=== PATIENT | female | born 1955 | race Caucasian/White ===

== ENCOUNTER 2017-08-02 09:46 | Outpatient (CLI) | payer OTHER | END 2017-08-02 09:47 | disposition home or self-care (01) | LOC: BICMRI 09:46 | PROVIDERS: ATTEND Orthopaedic Surgery | DX: M25.512 Pain in left shoulder (principal) ==

== ENCOUNTER 2017-10-19 12:10 | Outpatient (CLI) | payer OTHER | END 2017-10-19 12:11 | disposition home or self-care (01) | LOC: BICMAMMO 12:10 | PROVIDERS: ATTEND Family Medicine | DX: Z12.31 Encounter for screening mammogram for malignant neoplasm of breast (principal); Z80.3 Family history of malignant neoplasm of breast | CPT/HCPCS: 77067 ==

== ENCOUNTER 2017-10-28 12:56 | Outpatient (CLI) | payer OTHER ==
--- NOTE | 2017-10-28 14:10 | RAD ---
CHEST 2 VIEWS: HISTORY: Dyspnea. COMPARISON: None. FINDINGS: Normal cardiac silhouette. The lungs and pleural spaces are clear. No pneumothorax or osseous abnor malities. IMPRESSION: No acute cardiopulmonary process. POS: [facility]
== END 2017-10-28 12:57 | disposition home or self-care (01) ==
LOC: RAD 12:56
PROVIDERS: ATTEND Internal Medicine
DX: R06.00 Dyspnea, unspecified (principal)
CPT/HCPCS: 71046

== ENCOUNTER 2017-11-10 13:22 | Outpatient (CLI) | payer OTHER | END 2017-11-10 13:23 | disposition home or self-care (01) | LOC: CP 13:22 | PROVIDERS: ATTEND Internal Medicine | DX: R06.09 Other forms of dyspnea (principal); G47.33 Obstructive sleep apnea (adult) (pediatric) | CPT/HCPCS: 94060; 94727; 94729 ==

== ENCOUNTER 2017-11-19 13:20 | Outpatient (CLI) | payer OTHER | END 2017-11-19 13:21 | disposition home or self-care (01) | LOC: BICMAMMO 13:20 | PROVIDERS: ATTEND Family Medicine | DX: R92.8 Other abnormal and inconclusive findings on diagnostic imaging of breast (principal) | CPT/HCPCS: G0279 ==

== ENCOUNTER 2017-12-09 20:30 | Outpatient (CLI) | payer OTHER | END 2017-12-09 20:31 | disposition home or self-care (01) | LOC: SLEEPLAB 20:30 | PROVIDERS: ATTEND Internal Medicine | DX: G47.33 Obstructive sleep apnea (adult) (pediatric) (principal); R53.83 Other fatigue; R51 Headache; E66.9 Obesity, unspecified; R35.1 Nocturia; G47.00 Insomnia, unspecified; I10 Essential (primary) hypertension; E11.9 Type 2 diabetes mellitus without complications | CPT/HCPCS: 95810 ==

== ENCOUNTER 2017-12-23 19:30 | Outpatient (CLI) | payer OTHER | END 2017-12-23 19:31 | disposition home or self-care (01) | LOC: SLEEPLAB 19:30 | PROVIDERS: ATTEND Internal Medicine | DX: G47.33 Obstructive sleep apnea (adult) (pediatric) (principal); R42 Dizziness and giddiness; R51 Headache; E66.9 Obesity, unspecified; R06.83 Snoring; G47.00 Insomnia, unspecified; R35.1 Nocturia; I10 Essential (primary) hypertension; E11.9 Type 2 diabetes mellitus without complications | CPT/HCPCS: 95811 ==

== ENCOUNTER 2017-12-27 11:03 | Outpatient (CLI) | payer OTHER ==
[2017-12-27 12:44] LABS: Hemoglobin 13.7 g/dL (12.0-16.0); Mean Corpuscular HGB CONC 33.1 g/dL (32.0-36.0); Mean Corpuscular Hemoglobin 28.4 pg (27.0-31.0); Mean Corpuscular Volume 85.8 fL (78.0-98.0); Mean Platelet Volume 7.7 fL (7.4-10.4); Platelet Count 329 thou/uL (130-400); RBC Distribution Width 12.5 % (11.5-14.5); Red Blood Cell (RBC) Count 4.83 mill/uL (4.20-5.40); White Blood Cell (WBC) Count 10.1 thou/uL (4.8-10.8)
[2017-12-27 13:07] LABS: Anion Gap 13 mmol/L (10-20); BUN (Urea Nitrogen) 14 mg/dL (9.8-20.1); Calc. Creatinine Clearance 0 mL/min (70-130); Calcium 9.3 mg/dL (7.8-10.44); Carbon Dioxide 26 mmol/L (23-31); Chloride 101 mmol/L (98-107); Estimated GFR-MDRD Greater than 90; Glucose 116 mg/dL (80-115); Potassium 3.1 mmol/L (3.5-5.1); Sodium 137 mmol/L (136-145)
== END 2017-12-27 11:04 | disposition home or self-care (01) ==
LOC: LABBT 11:03
PROVIDERS: ATTEND Orthopaedic Surgery
DX: Z01.818 Encounter for other preprocedural examination (principal); M75.102 Unspecified rotator cuff tear or rupture of left shoulder, not specified as traumatic
CPT/HCPCS: 80048; 85027; 93005; 93010

== ENCOUNTER 2017-12-30 05:46 | Day surgery (SDC) | payer OTHER ==
[2017-12-27 11:31] VITALS: BMI 41.2
[2017-12-30] MEDS ORDERED: Clindamycin/D5W 900 mg/50 ml Premix Bag ONE (06:35)
[2017-12-30] MEDS ORDERED: Levofloxacin 500 mg/D5W 100 ml Premix Bag ONE (06:37)
[2017-12-30] MEDS ORDERED: Fentanyl 100 MCG/2 ML VIAL ONE (06:41)
[2017-12-30] MEDS ORDERED: Midazolam HCl 2 mg/2 ml Vial ONE (06:41)
[2017-12-30] MEDS ORDERED: Zolpidem Tartrate 5 MG TAB PO PRN (07:32)
[2017-12-30] MEDS ORDERED: traMADol HCl 50 MG TAB PO PRN ×2 (07:32)
[2017-12-30] MEDS ORDERED: HYDROcodone/Acetaminophen 5/325 mg Tablet PO PRN ×2 (07:32)
[2017-12-30] MEDS ORDERED: Ropivacaine HCl/PF 1,100 MG in Sodium Chloride 0.9% 440 ML NERVE BLCK SCH (07:32)
[2017-12-30] MEDS ORDERED: Promethazine HCl 25 MG/ML VIAL IM PRN (07:32)
[2017-12-30] MEDS ORDERED: Ketorolac Tromethamine 30 MG/ML VIAL IVP PRN (07:32)
[2017-12-30] MEDS ORDERED: Ondansetron HCl/PF 4 MG/2 ML Vial IVP PRN (07:32)
[2017-12-30] MEDS ORDERED: Fentanyl 100 MCG/2 ML VIAL IV PRN (07:34)
[2017-12-30] MEDS ORDERED: Bupivacaine/Epinephrine 0.25% 30 ML VIAL ONE (08:04)
--- NOTE | 2017-12-30 09:50 | OP ---
DATE OF PROCEDURE: 12/30/2017 PREOPERATIVE DIAGNOSIS: Left high grade versus complete rotator cuff tear. POSTOPERATIVE DIAGNOSES: Left high grade rotator cuff tear greater than 50%. PROCEDURE PERFORMED: Left rotator cuff repair. STAFF: Sheng Srinivasan M.D. SPECIAL EVENTS MANAGER: None. ANESTHESIA: Burrough. The patient received a general endotracheal intubation with interscalene bloc k. ESTIMATED BLOOD LOSS: Less than 30 mL. TOURNIQUET TIME: None. IMPLANTS: A 5.5 Arthrex corkscrew. ANTIBIOTICS: Levaquin. COMPLICATIONS: None. HISTORY OF PRESENT ILLNESS: Ms. Nicole is a 62-year-old female who presented to my care for a fall i n March. She had pain, had an injection which gave her relief. The patient had MRI evidence of a near full thickness tear. I discussed with patient the risks and benefits of a left rotator cuff rep air to include pain, scar, bleeding, infection, damage to vital structures, decreased range of motion or strength, continued pain despite surgical intervention, damage to vital structures, loss of left limb. She understood the risks and benefits and elected to proceed. Timeout performed designating t he patient's left upper extremity as the operative site based on site, consents, markings. PROCEDURE IN DETAIL: After completion of timeout the patient's upper extremity was prepped and drape d in sterile fashion. Posterior working portal placed looked intraarticularly. No full thickness de fects. The ____ was inflamed, but otherwise intact. Subscap was otherwise not tear, the capsule was in place, I did not see any full thickness tearing. We then moved subacromially, debrided off the b ursa, found the patient's tear which was just a small linear tear, kind of near the insertion of the infraspinatus. We debrided the bone, placed a single 5.5 anchor, placed 2 sutures. I felt that I h ad reapproximated the cuff well. I then washed, cut the sutures and closed with 3-0 nylon. The patient will be placed in a sling. Elbow, wrist, and hand motion until I see her back. The dany ent will pull her block if she has any difficulty breathing, sleep upright in a chair and will be giv en hydrocodone for pain relief.
== END 2017-12-30 11:45 | disposition home or self-care (01) ==
LOC: SDC 05:46
PROVIDERS: ATTEND Orthopaedic Surgery
PROC: 0LQ24ZZ Repair Left Shoulder Tendon, Percutaneous Endoscopic Approach (ICD-10-PCS; principal; 2017-12-30)
PROC: 0LU24JZ Supplement Left Shoulder Tendon with Synthetic Substitute, Percutaneous Endoscopic Approach (ICD-10-PCS; principal; 2017-12-30)
DX: S46.012A Strain of muscle(s) and tendon(s) of the rotator cuff of left shoulder, initial encounter (principal); E11.9 Type 2 diabetes mellitus without complications; J44.9 Chronic obstructive pulmonary disease, unspecified; E03.9 Hypothyroidism, unspecified; K21.9 Gastro-esophageal reflux disease without esophagitis; I10 Essential (primary) hypertension; G47.30 Sleep apnea, unspecified; Z79.82 Long term (current) use of aspirin; Z79.84 Long term (current) use of oral hypoglycemic drugs; Z79.899 Other long term (current) drug therapy; Z88.8 Allergy status to other drugs, medicaments and biological substances; Z98.890 Other specified postprocedural states; W19.XXXA Unspecified fall, initial encounter
CPT/HCPCS: C1713; J1956; J2250; J3010; J3490; J7050

== ENCOUNTER 2017-12-30 21:47 | Emergency (ER) | payer OTHER | END 2017-12-30 23:13 | disposition home or self-care (01) | LOC: ERS 21:47 | DX: G89.18 Other acute postprocedural pain (principal); M25.512 Pain in left shoulder; E11.9 Type 2 diabetes mellitus without complications; E03.9 Hypothyroidism, unspecified; E78.5 Hyperlipidemia, unspecified; J44.9 Chronic obstructive pulmonary disease, unspecified; Z87.891 Personal history of nicotine dependence | CPT/HCPCS: 99283 ==

== ENCOUNTER → 2017-12-31 | Day surgery (SDC) | payer OTHER ==
[~2017-12-31] MED LIST: Ropivacaine 0.5% HCl/PF (150 MG/30 ML VIAL) ONE
== END ==
LOC: SDC/OP 10:58
PROVIDERS: ATTEND Anesthesiology
PROC: 3E0T3BZ Introduction of Anesthetic Agent into Peripheral Nerves and Plexi, Percutaneous Approach (ICD-10-PCS; principal; 2017-12-31)
DX: T82.524A Displacement of infusion catheter, initial encounter (principal); G89.18 Other acute postprocedural pain; M25.512 Pain in left shoulder
CPT/HCPCS: 99283; J2795

== ENCOUNTER 2018-06-09 09:11 | Outpatient (CLI) | payer OTHER | END 2018-06-09 09:12 | disposition home or self-care (01) | LOC: BICMAMMO 09:11 | PROVIDERS: ATTEND Family Medicine | DX: R92.8 Other abnormal and inconclusive findings on diagnostic imaging of breast (principal); Z80.3 Family history of malignant neoplasm of breast | CPT/HCPCS: G0279 ==

== ENCOUNTER 2019-03-06 14:24 | Outpatient (CLI) | payer MEDICARE, OTHER ==
--- NOTE | 2019-03-06 15:07 | MMO ---
Bilateral MAMMO Bilat Diag [facility]. CLINICAL HISTORY: Patient is 64 years old and is seen for diagnostic exam. The patient has no family history of breast cancer. The patient has no personal history of cancer. The patient has a history of right needle biopsy - benign and right needle biopsy - benign. VIEWS: The views performed were: bilateral craniocaudal with tomosynthesis; bilateral mediolateral oblique with tomosynthesis; and bilateral mediolateral with tomosynthesis. FILMS COMPARED: The present examination has been compared to prior imaging studies performed at [facility] on 11/19/2017 and 06/09/2018. This study has been interpreted with the assistance of computer-aided detection. MAMMOGRAM FINDINGS: There are scattered fibroglandular densities. Finding 1: There are stable benign appearing calcifications seen in both breasts. Finding 2: There are multiple stable focal asymmetries seen in both breasts. There are no suspicious masses, suspicious calcifications, or new areas of architectural distortion. IMPRESSION: THERE IS NO MAMMOGRAPHIC EVIDENCE OF MALIGNANCY. A ROUTINE FOLLOW-UP MAMMOGRAM IN 1 YEAR IS RECOMMENDED. THE RESULTS OF THIS EXAM WERE SENT TO THE PATIENT. ACR BI-RADS Category 2 - Benign finding MAMMOGRAPHY NOTE: 1. A negative mammogram report should not delay a biopsy if a dominant of clinically suspicious mass is present. 2. Approximately 10% to 15% of breast cancers are not detected by mammography. 3. Adenosis and dense breasts may obscure an underlying neoplasm. Reported by: SRIDHAR CHAVEZ MD Electonically Signed: [id number]
== END 2019-03-06 14:25 | disposition home or self-care (01) ==
LOC: BICMAMMO 14:24
PROVIDERS: ATTEND Family Medicine
DX: R92.8 Other abnormal and inconclusive findings on diagnostic imaging of breast (principal)
CPT/HCPCS: 77066; G0279

== ENCOUNTER 2021-03-05 14:00 | Emergency (ER) | payer MEDICARE, OTHER ==
[2021-03-05] MEDS ORDERED: Ketorolac Tromethamine 30 MG/ML VIAL ONE (15:38)
[2021-03-05 15:49] LABS: #Basophils 0.1 thou/uL (0.0-0.2); #Eosinphils 0.1 thou/uL (0.0-0.7); #Lymphocytes 3.6 thou/uL (1.20-3.40); #Monocytes 1.1 thou/uL (0.11-0.59); #Neutrophils 7.5 thou/uL (1.40-6.50); %Basophils 0.9 % (0.0-1.0); %Eosinophils 0.5 % (0.0-10.0); %Lymphocytes 29.2 % (21.0-51.0); %Neutrophils 60.4 % (42.0-75.0); Hemoglobin 14.3 g/dL (12.0-16.0); Mean Corpuscular HGB CONC 32.7 g/dL (32.0-36.0); Mean Corpuscular Hemoglobin 27.5 pg (27.0-31.0); Mean Corpuscular Volume 84.2 fL (78.0-98.0); Mean Platelet Volume 7.2 fL (7.4-10.4); Platelet Count 342 thou/uL (130-400); RBC Distribution Width 13.8 % (11.5-14.5); White Blood Cell (WBC) Count 12.5 thou/uL (4.8-10.8)
[2021-03-05 16:14] LABS: ALT (SGPT) 39 U/L (8-55); AST (SGOT) 29 U/L (5-34); Albumin 3.4 g/dL (3.4-4.8); Alkaline Phosphatase 77 U/L (40-110); Anion Gap 13 mmol/L (10-20); BUN (Urea Nitrogen) 18 mg/dL (9.8-20.1); Bilirubin, Total 0.5 mg/dL (0.2-1.2); Calc. Creatinine Clearance 0 mL/min (70-130); Carbon Dioxide 27 mmol/L (23-31); Chloride 103 mmol/L (98-107); Globulin 2.9 g/dL (2.4-3.5); Glucose 153 mg/dL (80-115); Magnesium 1.6 mg/dL (1.6-2.6); Potassium 3.5 mmol/L (3.5-5.1); Protein, Total 6.3 g/dL (5.8-8.1); Sodium 139 mmol/L (136-145)
[2021-03-05] MEDS ORDERED: Morphine 4 MG/ML VIAL ONE (17:40)
[2021-03-05] MEDS ORDERED: Dexamethasone 10 MG/ML VIAL ONE (17:41)
== END 2021-03-05 18:27 | disposition home or self-care (01) ==
LOC: ERS 14:00
DX: R53.81 Other malaise (principal); R52 Pain, unspecified; E11.9 Type 2 diabetes mellitus without complications; Q60.0 Renal agenesis, unilateral; N32.81 Overactive bladder; E78.5 Hyperlipidemia, unspecified; E78.00 Pure hypercholesterolemia, unspecified; I10 Essential (primary) hypertension; E03.9 Hypothyroidism, unspecified; G47.30 Sleep apnea, unspecified; Z87.891 Personal history of nicotine dependence; Z86.16 Personal history of COVID-19
CPT/HCPCS: 36415; 80053; 83605; 83735; 83880; 85025; 93005; 96374; 96375; J1100; J1885; J2270

== ENCOUNTER 2021-03-08 17:09 | Inpatient (IN) | payer MEDICARE ==
[2021-03-08 20:47] VITALS: BMI 36.1
[2021-03-08] MEDS ORDERED: Electrolyte Replacement Protocol 1 EACH FS SCH (23:15)
[2021-03-08] MEDS: Ibuprofen 200 MG TAB PO PRN (23:40)
[2021-03-08] MEDS ORDERED: Atorvastatin Calcium 20 MG TAB PO SCH (23:59)
[2021-03-08] MEDS ORDERED: Oxybutynin 5 MG TAB PO SCH (23:59)
[2021-03-08] MEDS ORDERED: Chlorthalidone 25 MG TAB PO SCH (23:59)
[2021-03-09] MEDS: Acetaminophen/Codeine 30-300mg Tablet PO PRN ×3 (00:58→10:12)
[2021-03-09] MEDS ORDERED: Nitroglycerin 0.4 MG TAB (25 Tab Bottle) SL PRN (04:05)
[2021-03-09] MEDS ORDERED: Lidocaine 2% Viscous Solution 10 ML, Aluminum & Magnesium Hydroxide 30 ML SSW SCH (04:15)
[2021-03-09] MEDS ORDERED: Aspirin 325 MG TAB PO SCH (04:15)
[2021-03-09] MEDS: Levothyroxine Sodium 100 MCG TAB PO SCH (04:27)
[2021-03-09] MEDS ORDERED: Dextrose 50% Abboject 50 ML SYRINGE SLOW IVP PRN (04:58)
[2021-03-09] MEDS ORDERED: Dextrose 5% in Water 1,000 ML IV PRN (04:58)
[2021-03-09 05:38] LABS: #Eosinphils 0.1 thou/uL (0.0-0.7); #Lymphocytes 3.2 thou/uL (1.20-3.40); #Monocytes 1.4 thou/uL (0.11-0.59); #Neutrophils 14.1 thou/uL (1.40-6.50); %Eosinophils 0.4 % (0.0-10.0); %Lymphocytes 17.1 % (21.0-51.0); %Monocytes 7.3 % (0.0-10.0); %Neutrophils 75.1 % (42.0-75.0); Hemoglobin 15.6 g/dL (12.0-16.0); Mean Corpuscular HGB CONC 31.9 g/dL (32.0-36.0); Mean Corpuscular Volume 84.6 fL (78.0-98.0); Mean Platelet Volume 7.1 fL (7.4-10.4); Platelet Count 285 thou/uL (130-400); RBC Distribution Width 14.1 % (11.5-14.5); Red Blood Cell (RBC) Count 5.77 mill/uL (4.20-5.40); White Blood Cell (WBC) Count 18.8 thou/uL (4.8-10.8)
[2021-03-09 05:40] LABS: Anion Gap 17 mmol/L (10-20); BUN (Urea Nitrogen) 9 mg/dL (9.8-20.1); Calc. Creatinine Clearance 139 mL/min (70-130); Calcium 8.8 mg/dL (7.8-10.44); Carbon Dioxide 21 mmol/L (23-31); Cardiac Risk 2.5 (Less than 4.5); Chloride 96 mmol/L (98-107); Cholesterol 117 mg/dl (< 200 Desired); Glucose 127 mg/dL (80-115); HDL Cholesterol 46 mg/dL (>60 Neg Risk); LDL Cholesterol, Calculated 53 mg/dL; Potassium 3.1 mmol/L (3.5-5.1); Sodium 131 mmol/L (136-145); Triglycerides 89 mg/dL (Less than 150)
[2021-03-09 05:44] LABS: Troponin I Less than 0.010 ng/mL (< 0.028)
[2021-03-09] MEDS ORDERED: metFORMIN 500 MG TAB PO SCH (08:00)
[2021-03-09] MEDS: Oxybutynin 5 MG TAB PO SCH ×2 (08:10→22:02)
[2021-03-09] MEDS: Enoxaparin Sodium 40 MG/0.4 ML SYRINGE SC SCH (08:11)
[2021-03-09] MEDS: Potassium Chloride 20 MEQ in Premix Bag 1 BAG IVPB SCH ×2 (10:36→11:04)
[2021-03-09] MEDS ORDERED: Potassium Chloride 20 MEQ TAB PO SCH (11:00)
[2021-03-09 11:34] LABS: Troponin I Less than 0.010 ng/mL (< 0.028)
[2021-03-09] MEDS: HYDROcodone/Acetaminophen 5/325 mg Tablet PO PRN ×3 (12:49→22:04)
[2021-03-09] MEDS: HumaLOG 300 UNITS/3 ML VIAL SC PRN (16:32)
[2021-03-09] MEDS: Ibuprofen 200 MG TAB PO PRN (16:34)
[2021-03-09] MEDS: Ondansetron PF 4 MG/2 ML Vial IVP PRN (16:34)
[2021-03-09] MEDS: hydrALAZINE 20 MG/ML VIAL SLOW IVP PRN (18:18)
[2021-03-09] MEDS ORDERED: Chlorthalidone 25 MG TAB PO SCH (21:00)
[2021-03-09] MEDS: Atorvastatin Calcium 20 MG TAB PO SCH (22:01)
[2021-03-10] MEDS: Ondansetron PF 4 MG/2 ML Vial IVP PRN (01:03)
[2021-03-10] MEDS: HYDROcodone/Acetaminophen 5/325 mg Tablet PO PRN ×5 (02:54→21:14)
[2021-03-10 05:50] LABS: Cardiac Risk 2.7 (Less than 4.5)
[2021-03-10] MEDS: Levothyroxine Sodium 100 MCG TAB PO SCH (06:14)
[2021-03-10] MEDS: HumaLOG 300 UNITS/3 ML VIAL SC PRN ×3 (06:15→21:16)
[2021-03-10] MEDS: Enoxaparin Sodium 40 MG/0.4 ML SYRINGE SC SCH (08:50)
[2021-03-10] MEDS: Oxybutynin 5 MG TAB PO SCH ×2 (08:51→21:13)
[2021-03-10] MEDS: Amlodipine 10 MG TAB PO SCH (10:33)
[2021-03-10] MEDS: Losartan 25 MG TAB PO SCH (10:33)
[2021-03-10] MEDS: Sodium Chloride 0.9% 1,000 ML IV SCH (12:31)
[2021-03-10] MEDS: guaiFENesin/Codeine 200 mg/20 mg 10 ml Cup PO PRN (17:27)
[2021-03-10] MEDS: Polyethylene Glycol 3350 17 GM Packet PO SCH (18:03)
[2021-03-10 18:26] LABS: Mean Corpuscular HGB CONC 32.2 g/dL (32.0-36.0); Mean Corpuscular Hemoglobin 27.3 pg (27.0-31.0); Mean Corpuscular Volume 84.8 fL (78.0-98.0); Platelet Count 458 thou/uL (130-400); RBC Distribution Width 14.7 % (11.5-14.5); Red Blood Cell (RBC) Count 6.21 mill/uL (4.20-5.40); White Blood Cell (WBC) Count 26.9 thou/uL (4.8-10.8)
[2021-03-10 18:43] LABS: Band 8 % (5-11); Lymphocytes 10 % (21-51); MDiff Complete? YES; Monocytes 6 % (0-10); Neutrophil 72 % (42-75); Platelet Morphology Comment Appears Increased; Polychromasia SLIGHT = 2-3 cells (100X) (0-2/hpf); Reactive Lymphocytes 4 % (0-10)
[2021-03-10 18:45] LABS: Anion Gap 21 mmol/L (10-20); BUN (Urea Nitrogen) 13 mg/dL (9.8-20.1); Calc. Creatinine Clearance 135 mL/min (70-130); Calcium 9.5 mg/dL (7.8-10.44); Carbon Dioxide 20 mmol/L (23-31); Chloride 94 mmol/L (98-107); Glucose 143 mg/dL (80-115); Potassium 3.3 mmol/L (3.5-5.1); Sodium 132 mmol/L (136-145)
[2021-03-10] MEDS ORDERED: Potassium Chloride 20 MEQ TAB PO SCH (19:45)
[2021-03-10] MEDS: Senokot S 8.6-50 MG TAB PO SCH (21:13)
[2021-03-10] MEDS: Atorvastatin Calcium 20 MG TAB PO SCH (21:14)
[2021-03-11] MEDS: HYDROcodone/Acetaminophen 5/325 mg Tablet PO PRN ×4 (02:04→21:36)
[2021-03-11] MEDS: Levothyroxine Sodium 100 MCG TAB PO SCH (05:21)
[2021-03-11] MEDS: Sodium Chloride 0.9% 1,000 ML IV SCH ×2 (05:21→18:23)
[2021-03-11 06:10] LABS: #Basophils 0.1 thou/uL (0.0-0.2); #Eosinphils 0.1 thou/uL (0.0-0.7); #Monocytes 1.8 thou/uL (0.11-0.59); #Neutrophils 14.1 thou/uL (1.40-6.50); %Basophils 0.3 % (0.0-1.0); %Eosinophils 0.4 % (0.0-10.0); %Lymphocytes 15.6 % (21.0-51.0); %Monocytes 9.6 % (0.0-10.0); %Neutrophils 74.1 % (42.0-75.0); Mean Corpuscular HGB CONC 31.8 g/dL (32.0-36.0); Mean Corpuscular Hemoglobin 26.8 pg (27.0-31.0); Mean Corpuscular Volume 84.4 fL (78.0-98.0); Mean Platelet Volume 7.4 fL (7.4-10.4); Platelet Count 461 thou/uL (130-400); RBC Distribution Width 14.6 % (11.5-14.5); Red Blood Cell (RBC) Count 5.97 mill/uL (4.20-5.40); White Blood Cell (WBC) Count 19.1 thou/uL (4.8-10.8)
[2021-03-11 06:25] LABS: Anion Gap 17 mmol/L (10-20); BUN (Urea Nitrogen) 11 mg/dL (9.8-20.1); Calc. Creatinine Clearance 151 mL/min (70-130); Calcium 8.7 mg/dL (7.8-10.44); Carbon Dioxide 24 mmol/L (23-31); Chloride 93 mmol/L (98-107); Glucose 162 mg/dL (80-115); Potassium 3.7 mmol/L (3.5-5.1); Sodium 130 mmol/L (136-145)
[2021-03-11] MEDS: HumaLOG 300 UNITS/3 ML VIAL SC PRN ×2 (06:31→13:12)
[2021-03-11] MEDS: Losartan 25 MG TAB PO SCH (09:56)
[2021-03-11] MEDS: Amlodipine 10 MG TAB PO SCH (09:56)
[2021-03-11] MEDS: Oxybutynin 5 MG TAB PO SCH ×2 (09:56→21:36)
[2021-03-11] MEDS: Senokot S 8.6-50 MG TAB PO SCH ×2 (09:56→21:36)
[2021-03-11] MEDS: Enoxaparin Sodium 40 MG/0.4 ML SYRINGE SC SCH (09:57)
[2021-03-11] MEDS ORDERED: Ketorolac Tromethamine 30 MG/ML VIAL IVP SCH (11:36)
[2021-03-11] MEDS: guaiFENesin/Codeine 200 mg/20 mg 10 ml Cup PO PRN (16:01)
[2021-03-11 16:03] LABS: #Basophils 0.1 thou/uL (0.0-0.2); #Eosinphils 0.1 thou/uL (0.0-0.7); #Lymphocytes 3.2 thou/uL (1.20-3.40); #Monocytes 1.6 thou/uL (0.11-0.59); #Neutrophils 14.5 thou/uL (1.40-6.50); %Basophils 0.3 % (0.0-1.0); %Eosinophils 0.4 % (0.0-10.0); %Lymphocytes 16.2 % (21.0-51.0); %Monocytes 8.3 % (0.0-10.0); %Neutrophils 74.8 % (42.0-75.0); Hemoglobin 15.8 g/dL (12.0-16.0); Mean Corpuscular Hemoglobin 27.9 pg (27.0-31.0); Mean Corpuscular Volume 84.4 fL (78.0-98.0); Platelet Count 442 thou/uL (130-400); RBC Distribution Width 14.7 % (11.5-14.5); Red Blood Cell (RBC) Count 5.66 mill/uL (4.20-5.40); White Blood Cell (WBC) Count 19.4 thou/uL (4.8-10.8)
[2021-03-11] MEDS: hydrALAZINE 20 MG/ML VIAL SLOW IVP PRN (16:09)
[2021-03-11 16:23] LABS: Anion Gap 14 mmol/L (10-20); BUN (Urea Nitrogen) 13 mg/dL (9.8-20.1); Calc. Creatinine Clearance 149 mL/min (70-130); Calcium 9.1 mg/dL (7.8-10.44); Carbon Dioxide 25 mmol/L (23-31); Chloride 95 mmol/L (98-107); Glucose 152 mg/dL (80-115); Potassium 3.5 mmol/L (3.5-5.1); Sodium 130 mmol/L (136-145)
[2021-03-11] MEDS: Polyethylene Glycol 3350 17 GM Packet PO SCH (17:56)
[2021-03-11] MEDS: Atorvastatin Calcium 20 MG TAB PO SCH (21:36)
[2021-03-12 05:26] LABS: Hemoglobin 16.2 g/dL (12.0-16.0); Mean Corpuscular HGB CONC 30.6 g/dL (32.0-36.0); Mean Corpuscular Hemoglobin 25.9 pg (27.0-31.0); Mean Corpuscular Volume 84.9 fL (78.0-98.0); Mean Platelet Volume 7.5 fL (7.4-10.4); Platelet Count 355 thou/uL (130-400); RBC Distribution Width 14.8 % (11.5-14.5); Red Blood Cell (RBC) Count 6.23 mill/uL (4.20-5.40); White Blood Cell (WBC) Count 21.9 thou/uL (4.8-10.8)
[2021-03-12 06:05] LABS: Anion Gap 18 mmol/L (10-20); BUN (Urea Nitrogen) 14 mg/dL (9.8-20.1); Calc. Creatinine Clearance 151 mL/min (70-130); Carbon Dioxide 20 mmol/L (23-31); Chloride 97 mmol/L (98-107); Glucose 154 mg/dL (80-115); Magnesium 1.8 mg/dL (1.6-2.6); Potassium 3.7 mmol/L (3.5-5.1); Sodium 131 mmol/L (136-145)
[2021-03-12] MEDS: HYDROcodone/Acetaminophen 5/325 mg Tablet PO PRN ×2 (06:15→20:01)
[2021-03-12] MEDS: Levothyroxine Sodium 100 MCG TAB PO SCH (06:15)
[2021-03-12] MEDS: Sodium Chloride 0.9% 1,000 ML IV SCH ×2 (06:17→20:21)
[2021-03-12 06:23] LABS: MDiff Complete? YES
[2021-03-12 06:24] LABS: Band 8 % (5-11); Lymphocytes 14 % (21-51); Monocytes 6 % (0-10); Neutrophil 71 % (42-75); Reactive Lymphocytes 1 % (0-10)
[2021-03-12] MEDS ORDERED: Magnesium 2 GM/50 ML 2 GM in Premix Bag 1 BAG IVPB SCH ×2 (07:00→10:00)
[2021-03-12] MEDS: Enoxaparin Sodium 40 MG/0.4 ML SYRINGE SC SCH (09:48)
[2021-03-12] MEDS: Amlodipine 10 MG TAB PO SCH (09:48)
[2021-03-12] MEDS: Losartan 25 MG TAB PO SCH (09:48)
[2021-03-12] MEDS: Oxybutynin 5 MG TAB PO SCH ×2 (09:48→20:01)
[2021-03-12] MEDS: Senokot S 8.6-50 MG TAB PO SCH ×2 (09:48→20:01)
[2021-03-12] MEDS: Ondansetron PF 4 MG/2 ML Vial IVP PRN (09:49)
[2021-03-12] MEDS: hydrALAZINE 20 MG/ML VIAL SLOW IVP PRN (11:59)
[2021-03-12] MEDS: HumaLOG 300 UNITS/3 ML VIAL SC PRN ×3 (12:01→18:47)
[2021-03-12] MEDS: Polyethylene Glycol 3350 17 GM Packet PO SCH (18:15)
[2021-03-12] MEDS: Atorvastatin Calcium 20 MG TAB PO SCH (20:01)
[2021-03-13] MEDS: Levothyroxine Sodium 100 MCG TAB PO SCH (06:37)
[2021-03-13] MEDS: HumaLOG 300 UNITS/3 ML VIAL SC PRN ×2 (06:38→11:52)
[2021-03-13] MEDS: Losartan 25 MG TAB PO SCH (08:21)
[2021-03-13] MEDS: Enoxaparin Sodium 40 MG/0.4 ML SYRINGE SC SCH (08:21)
[2021-03-13] MEDS: Amlodipine 10 MG TAB PO SCH (08:21)
[2021-03-13] MEDS: Senokot S 8.6-50 MG TAB PO SCH ×2 (08:21→19:52)
[2021-03-13] MEDS: Oxybutynin 5 MG TAB PO SCH ×2 (08:23→19:52)
[2021-03-13] MEDS ORDERED: Mineral Oil ENEMA PR SCH (09:15)
[2021-03-13] MEDS: Sodium Chloride 0.9% 1,000 ML IV SCH ×2 (10:30→15:07)
[2021-03-13] MEDS ORDERED: Magnesium Citrate 300 ML BOT PO SCH (11:15)
[2021-03-13] MEDS: HYDROcodone/Acetaminophen 5/325 mg Tablet PO PRN (15:56)
[2021-03-13] MEDS: hydrALAZINE 20 MG/ML VIAL SLOW IVP PRN (15:59)
[2021-03-13] MEDS: Nystatin 500,000 UNITS/5 ML UDCUP SSW SCH ×2 (16:45→19:52)
[2021-03-13] MEDS: Polyethylene Glycol 3350 17 GM Packet PO SCH (17:32)
[2021-03-13] MEDS: Atorvastatin Calcium 20 MG TAB PO SCH (19:51)
[2021-03-13] MEDS: Acetaminophen 325 MG TAB PO PRN (19:52)
[2021-03-14] MEDS: HYDROcodone/Acetaminophen 5/325 mg Tablet PO PRN ×3 (05:43→21:08)
[2021-03-14] MEDS: guaiFENesin/Codeine 200 mg/20 mg 10 ml Cup PO PRN ×2 (05:44→23:18)
[2021-03-14] MEDS: Levothyroxine Sodium 100 MCG TAB PO SCH (05:44)
[2021-03-14] MEDS: Senokot S 8.6-50 MG TAB PO SCH ×2 (09:00→21:08)
[2021-03-14] MEDS: Losartan 25 MG TAB PO SCH (09:00)
[2021-03-14] MEDS: Oxybutynin 5 MG TAB PO SCH ×2 (09:01→21:08)
[2021-03-14] MEDS: Nystatin 500,000 UNITS/5 ML UDCUP SSW SCH ×4 (09:02→21:09)
[2021-03-14] MEDS: Amlodipine 10 MG TAB PO SCH (09:02)
[2021-03-14] MEDS: Enoxaparin Sodium 40 MG/0.4 ML SYRINGE SC SCH (09:02)
[2021-03-14] MEDS ORDERED: Iopamidol-370 76% 500 ML 1 ML ONE (10:19)
[2021-03-14] MEDS: Sodium Chloride 0.9% 1,000 ML IV SCH (12:42)
[2021-03-14 14:39] LABS: #Eosinphils 0.1 thou/uL (0.0-0.7); #Lymphocytes 3.7 thou/uL (1.20-3.40); #Monocytes 1.8 thou/uL (0.11-0.59); #Neutrophils 12.1 thou/uL (1.40-6.50); %Basophils 0.1 % (0.0-1.0); %Eosinophils 0.8 % (0.0-10.0); %Lymphocytes 20.9 % (21.0-51.0); %Neutrophils 68.1 % (42.0-75.0); Hemoglobin 14.7 g/dL (12.0-16.0); Mean Corpuscular HGB CONC 33.1 g/dL (32.0-36.0); Mean Corpuscular Volume 84.7 fL (78.0-98.0); Mean Platelet Volume 6.9 fL (7.4-10.4); Platelet Count 350 thou/uL (130-400); Red Blood Cell (RBC) Count 5.23 mill/uL (4.20-5.40); White Blood Cell (WBC) Count 17.7 thou/uL (4.8-10.8)
[2021-03-14 15:03] LABS: ALT (SGPT) 23 U/L (8-55); AST (SGOT) 20 U/L (5-34); Alkaline Phosphatase 96 U/L (40-110); Anion Gap 14 mmol/L (10-20); BUN (Urea Nitrogen) 17 mg/dL (9.8-20.1); Bilirubin, Direct 0.3 mg/dL (0.1-0.3); Bilirubin, Total 0.6 mg/dL (0.2-1.2); Calc. Creatinine Clearance 139 mL/min (70-130); Calcium 8.8 mg/dL (7.8-10.44); Carbon Dioxide 22 mmol/L (23-31); Chloride 100 mmol/L (98-107); Glucose 171 mg/dL (80-115); Potassium 3.1 mmol/L (3.5-5.1); Protein, Total 6.4 g/dL (5.8-8.1); Sodium 133 mmol/L (136-145)
[2021-03-14] MEDS: Polyethylene Glycol 3350 17 GM Packet PO SCH (16:51)
[2021-03-14] MEDS ORDERED: cefTRIAXone\\ROCEPHIN 1 GM in Sodium Chloride 0.9% 100 ML IVPB SCH (18:15)
[2021-03-14] MEDS ORDERED: Potassium Chloride 10 MEQ in Premix Bag 1 BAG IVPB SCH (18:45)
[2021-03-14] MEDS ORDERED: Azithromycin 500 MG in Sodium Chloride 0.9% 250 ML 250 ML IVPB SCH (18:45)
[2021-03-14] MEDS ORDERED: Potassium Chloride 20 MEQ TAB PO SCH (18:50)
[2021-03-14] MEDS: Cyclobenzaprine 10 MG TAB PO SCH (21:08)
[2021-03-14] MEDS: Atorvastatin Calcium 20 MG TAB PO SCH (21:09)
[2021-03-14] MEDS: Acetaminophen 325 MG TAB PO PRN (22:43)
[2021-03-15] MEDS: HYDROcodone/Acetaminophen 5/325 mg Tablet PO PRN ×5 (01:36→22:32)
[2021-03-15] MEDS: guaiFENesin/Codeine 200 mg/20 mg 10 ml Cup PO PRN (05:03)
[2021-03-15] MEDS: Levothyroxine Sodium 100 MCG TAB PO SCH (05:03)
[2021-03-15] MEDS: Sodium Chloride 0.9% 1,000 ML IV SCH ×2 (05:04→15:52)
[2021-03-15 07:46] LABS: Anion Gap 14 mmol/L (10-20); BUN (Urea Nitrogen) 13 mg/dL (9.8-20.1); Calc. Creatinine Clearance 144 mL/min (70-130); Calcium 8.7 mg/dL (7.8-10.44); Carbon Dioxide 21 mmol/L (23-31); Chloride 101 mmol/L (98-107); Glucose 154 mg/dL (80-115); Magnesium 2.2 mg/dL (1.6-2.6); Phosphorus 2.9 mg/dL (2.3-4.7); Potassium 5.1 mmol/L (3.5-5.1); Sodium 131 mmol/L (136-145)
[2021-03-15 07:55] LABS: #Basophils 0.1 thou/uL (0.0-0.2); #Eosinphils 0.3 thou/uL (0.0-0.7); #Lymphocytes 3.5 thou/uL (1.20-3.40); #Monocytes 1.7 thou/uL (0.11-0.59); #Neutrophils 9.9 thou/uL (1.40-6.50); %Basophils 0.6 % (0.0-1.0); %Eosinophils 1.8 % (0.0-10.0); %Lymphocytes 22.4 % (21.0-51.0); %Monocytes 11.2 % (0.0-10.0); %Neutrophils 63.9 % (42.0-75.0); Hemoglobin 14.7 g/dL (12.0-16.0); Mean Corpuscular Hemoglobin 27.7 pg (27.0-31.0); Mean Corpuscular Volume 83.9 fL (78.0-98.0); Mean Platelet Volume 7.8 fL (7.4-10.4); Platelet Count 375 thou/uL (130-400); RBC Distribution Width 14.9 % (11.5-14.5); Red Blood Cell (RBC) Count 5.33 mill/uL (4.20-5.40); White Blood Cell (WBC) Count 15.5 thou/uL (4.8-10.8)
[2021-03-15] MEDS ORDERED: Potassium Chloride 20 MEQ TAB PO SCH (08:00)
[2021-03-15] MEDS: Cyclobenzaprine 10 MG TAB PO SCH ×3 (08:45→20:06)
[2021-03-15] MEDS: Amlodipine 10 MG TAB PO SCH (08:45)
[2021-03-15] MEDS: Senokot S 8.6-50 MG TAB PO SCH ×2 (08:47→20:06)
[2021-03-15] MEDS: Losartan 25 MG TAB PO SCH (08:47)
[2021-03-15] MEDS: Nystatin 500,000 UNITS/5 ML UDCUP SSW SCH ×4 (08:47→20:07)
[2021-03-15] MEDS: Oxybutynin 5 MG TAB PO SCH ×2 (08:47→20:06)
[2021-03-15] MEDS: Enoxaparin Sodium 40 MG/0.4 ML SYRINGE SC SCH (08:56)
[2021-03-15] MEDS ORDERED: MEROPENEM 1 GM/50 ML 1 GM in Premix Bag 1 BAG IVPB SCH (10:00)
[2021-03-15 16:34] LABS: Bacteria/HPF None Seen HPF (None Seen); Bilirubin Negative (Negative); Blood, Urine Trace (Negative); Clarity Clear (Clear); Glucose, Urine (Dipstick) Normal (Negative); Ketone, Urine Negative (Negative); Leukocyte 25 Leu/uL (Negative); Nitrite Negative (Negative); Protein, Urine (Dipstick) Negative (Neg-Trace); Specific Gravity, Urine 1.014 (1.002-1.036); Squamous Epithelial 0-3 HPF (0-3); Urobilinogen Normal mg/dL (Less than 2)
[2021-03-15] MEDS: Polyethylene Glycol 3350 17 GM Packet PO SCH (17:26)
[2021-03-15] MEDS: MEROPENEM 1 GM/50 ML 1 GM in Premix Bag 1 BAG IVPB SCH (17:26)
[2021-03-15] MEDS: Atorvastatin Calcium 20 MG TAB PO SCH (20:06)
[2021-03-16] MEDS: Sodium Chloride 0.9% 1,000 ML IV SCH (02:31)
[2021-03-16] MEDS: HYDROcodone/Acetaminophen 5/325 mg Tablet PO PRN ×2 (02:31→08:30)
[2021-03-16] MEDS: MEROPENEM 1 GM/50 ML 1 GM in Premix Bag 1 BAG IVPB SCH ×3 (02:45→17:57)
[2021-03-16] MEDS: Levothyroxine Sodium 100 MCG TAB PO SCH (05:40)
[2021-03-16 06:53] LABS: #Basophils 0.1 thou/uL (0.0-0.2); #Eosinphils 0.3 thou/uL (0.0-0.7); #Lymphocytes 3.5 thou/uL (1.20-3.40); #Monocytes 1.2 thou/uL (0.11-0.59); #Neutrophils 4.8 thou/uL (1.40-6.50); %Basophils 0.5 % (0.0-1.0); %Eosinophils 3.1 % (0.0-10.0); %Lymphocytes 35.9 % (21.0-51.0); %Monocytes 11.6 % (0.0-10.0); %Neutrophils 48.8 % (42.0-75.0); Hemoglobin 14.9 g/dL (12.0-16.0); Mean Corpuscular HGB CONC 33.3 g/dL (32.0-36.0); Mean Corpuscular Hemoglobin 28.2 pg (27.0-31.0); Mean Corpuscular Volume 84.7 fL (78.0-98.0); Mean Platelet Volume 6.5 fL (7.4-10.4); Platelet Count 336 thou/uL (130-400); RBC Distribution Width 14.8 % (11.5-14.5); Red Blood Cell (RBC) Count 5.27 mill/uL (4.20-5.40); White Blood Cell (WBC) Count 9.9 thou/uL (4.8-10.8)
[2021-03-16 07:14] LABS: ALT (SGPT) 22 U/L (8-55); AST (SGOT) 23 U/L (5-34); Alkaline Phosphatase 101 U/L (40-110); Anion Gap 12 mmol/L (10-20); BUN (Urea Nitrogen) 9 mg/dL (9.8-20.1); Bilirubin, Total 0.5 mg/dL (0.2-1.2); Calc. Creatinine Clearance 169 mL/min (70-130); Calcium 8.9 mg/dL (7.8-10.44); Carbon Dioxide 25 mmol/L (23-31); Chloride 100 mmol/L (98-107); Globulin 2.9 g/dL (2.4-3.5); Glucose 127 mg/dL (80-115); Protein, Total 5.9 g/dL (5.8-8.1); Sodium 133 mmol/L (136-145)
[2021-03-16] MEDS: Senokot S 8.6-50 MG TAB PO SCH ×2 (08:24→21:01)
[2021-03-16] MEDS: Cyclobenzaprine 10 MG TAB PO SCH ×3 (08:24→21:01)
[2021-03-16] MEDS: Nystatin 500,000 UNITS/5 ML UDCUP SSW SCH ×4 (08:25→21:00)
[2021-03-16] MEDS: Oxybutynin 5 MG TAB PO SCH ×2 (08:25→21:01)
[2021-03-16] MEDS: Losartan 25 MG TAB PO SCH (08:25)
[2021-03-16] MEDS: Amlodipine 10 MG TAB PO SCH (08:25)
[2021-03-16] MEDS: Saccharomyces boulardii 250 MG CAP PO SCH (08:25)
[2021-03-16] MEDS: Enoxaparin Sodium 40 MG/0.4 ML SYRINGE SC SCH (08:26)
[2021-03-16] MEDS: Gabapentin 400 MG CAP PO SCH (10:00)
[2021-03-16] MEDS: Polyethylene Glycol 3350 17 GM Packet PO SCH (17:58)
[2021-03-16] MEDS: Melatonin 3 MG TAB PO SCH (21:00)
[2021-03-16] MEDS: Atorvastatin Calcium 20 MG TAB PO SCH (21:01)
[2021-03-17] MEDS: Acetaminophen/Codeine 30-300mg Tablet PO PRN (00:04)
[2021-03-17] MEDS: MEROPENEM 1 GM/50 ML 1 GM in Premix Bag 1 BAG IVPB SCH ×3 (02:03→16:57)
[2021-03-17] MEDS: Levothyroxine Sodium 100 MCG TAB PO SCH (05:24)
[2021-03-17] MEDS: HYDROcodone/Acetaminophen 5/325 mg Tablet PO PRN (05:24)
[2021-03-17] MEDS: Enoxaparin Sodium 40 MG/0.4 ML SYRINGE SC SCH (08:42)
[2021-03-17] MEDS: Nystatin 500,000 UNITS/5 ML UDCUP SSW SCH ×4 (08:43→23:15)
[2021-03-17] MEDS: Amlodipine 10 MG TAB PO SCH (08:43)
[2021-03-17] MEDS: Gabapentin 400 MG CAP PO SCH (08:43)
[2021-03-17] MEDS: Oxybutynin 5 MG TAB PO SCH ×2 (08:43→23:13)
[2021-03-17] MEDS: Losartan 25 MG TAB PO SCH (08:43)
[2021-03-17] MEDS: Saccharomyces boulardii 250 MG CAP PO SCH (08:43)
[2021-03-17] MEDS: Cyclobenzaprine 10 MG TAB PO SCH ×3 (08:44→23:13)
[2021-03-17] MEDS: Senokot S 8.6-50 MG TAB PO SCH ×2 (08:44→23:14)
[2021-03-17] MEDS: Polyethylene Glycol 3350 17 GM Packet PO SCH (16:57)
[2021-03-17] MEDS: Atorvastatin Calcium 20 MG TAB PO SCH (23:13)
[2021-03-18] MEDS: Melatonin 3 MG TAB PO SCH ×2 (00:50→21:15)
[2021-03-18] MEDS: MEROPENEM 1 GM/50 ML 1 GM in Premix Bag 1 BAG IVPB SCH ×3 (02:33→18:07)
[2021-03-18] MEDS: HumaLOG 300 UNITS/3 ML VIAL SC PRN (05:43)
[2021-03-18] MEDS: Levothyroxine Sodium 100 MCG TAB PO SCH (05:43)
[2021-03-18] MEDS: Nystatin 500,000 UNITS/5 ML UDCUP SSW SCH ×4 (07:41→21:16)
[2021-03-18] MEDS: Oxybutynin 5 MG TAB PO SCH ×2 (07:41→21:16)
[2021-03-18] MEDS: Saccharomyces boulardii 250 MG CAP PO SCH (07:41)
[2021-03-18] MEDS: Amlodipine 10 MG TAB PO SCH (07:41)
[2021-03-18] MEDS: Losartan 25 MG TAB PO SCH (07:41)
[2021-03-18] MEDS: Gabapentin 400 MG CAP PO SCH (07:42)
[2021-03-18] MEDS: Senokot S 8.6-50 MG TAB PO SCH ×2 (07:42→21:16)
[2021-03-18] MEDS: Cyclobenzaprine 10 MG TAB PO SCH ×3 (07:42→21:15)
[2021-03-18 08:31] LABS: #Basophils 0.1 thou/uL (0.0-0.2); #Eosinphils 0.2 thou/uL (0.0-0.7); #Monocytes 1.6 thou/uL (0.11-0.59); %Basophils 0.9 % (0.0-1.0); %Eosinophils 1.7 % (0.0-10.0); %Lymphocytes 28.6 % (21.0-51.0); %Monocytes 11.4 % (0.0-10.0); %Neutrophils 57.5 % (42.0-75.0); Hemoglobin 15.3 g/dL (12.0-16.0); Mean Corpuscular HGB CONC 33.4 g/dL (32.0-36.0); Mean Corpuscular Hemoglobin 28.1 pg (27.0-31.0); Mean Corpuscular Volume 83.9 fL (78.0-98.0); Mean Platelet Volume 6.8 fL (7.4-10.4); Platelet Count 419 thou/uL (130-400); RBC Distribution Width 14.8 % (11.5-14.5); Red Blood Cell (RBC) Count 5.44 mill/uL (4.20-5.40)
[2021-03-18 08:46] LABS: Anion Gap 14 mmol/L (10-20); BUN (Urea Nitrogen) 20 mg/dL (9.8-20.1); Calc. Creatinine Clearance 163 mL/min (70-130); Calcium 9.2 mg/dL (7.8-10.44); Carbon Dioxide 24 mmol/L (23-31); Chloride 102 mmol/L (98-107); Glucose 114 mg/dL (80-115); Potassium 4.2 mmol/L (3.5-5.1); Sodium 136 mmol/L (136-145)
[2021-03-18 08:48] LABS: Prothrombin Time 13.6 sec (12.0-14.7)
[2021-03-18 08:49] LABS: PTT 36.4 sec (22.9-36.1)
[2021-03-18 10:56] LABS: CSF RBC Count - Manual 0 /cu.mm (None Seen); CSF Source CSF; CSF WBC/NonHematics Count-Man 2 /cu.mm (0-5); Clarity Clear (Clear); Tube # 4
[2021-03-18 10:57] LABS: CSF, Glucose 87 mg/dl (40-70); CSF, Protein 159 mg/dL (15-40)
[2021-03-18 15:56] LABS: Color Of CSF Supernatant COLORLESS (Colorless); Tube # 1; Unspun CSF Color COLORLESS (Colorless)
[2021-03-18] MEDS: OCTAGAM 10% 30 GM in Admixture Fee 1 EACH IVPB SCH (16:00)
[2021-03-18] MEDS: Polyethylene Glycol 3350 17 GM Packet PO SCH (18:07)
[2021-03-18] MEDS: Atorvastatin Calcium 20 MG TAB PO SCH (21:15)
[2021-03-18] MEDS: Acetaminophen/Codeine 30-300mg Tablet PO PRN (21:16)
[2021-03-19] MEDS: MEROPENEM 1 GM/50 ML 1 GM in Premix Bag 1 BAG IVPB SCH (02:30)
[2021-03-19] MEDS: Levothyroxine Sodium 100 MCG TAB PO SCH (04:57)
[2021-03-19] MEDS: Acetaminophen/Codeine 30-300mg Tablet PO PRN (04:58)
[2021-03-19] MEDS: Cyclobenzaprine 10 MG TAB PO SCH ×3 (08:28→21:57)
[2021-03-19] MEDS: Senokot S 8.6-50 MG TAB PO SCH ×2 (08:28→21:57)
[2021-03-19] MEDS: Gabapentin 400 MG CAP PO SCH (08:28)
[2021-03-19] MEDS: Nystatin 500,000 UNITS/5 ML UDCUP SSW SCH ×4 (08:28→23:35)
[2021-03-19] MEDS: Losartan 25 MG TAB PO SCH (08:28)
[2021-03-19] MEDS: Amlodipine 10 MG TAB PO SCH (08:28)
[2021-03-19] MEDS: Oxybutynin 5 MG TAB PO SCH ×2 (08:28→21:57)
[2021-03-19] MEDS: Saccharomyces boulardii 250 MG CAP PO SCH (08:28)
[2021-03-19] MEDS ORDERED: OCTAGAM 10% (10 GM/100 ML VIAL) IVPB SCH (09:00)
[2021-03-19] MEDS: OCTAGAM 10% 30 GM in Admixture Fee 1 EACH IVPB SCH (15:53)
[2021-03-19] MEDS: Polyethylene Glycol 3350 17 GM Packet PO SCH (17:54)
[2021-03-19] MEDS: Atorvastatin Calcium 20 MG TAB PO SCH (21:57)
[2021-03-19] MEDS: Melatonin 3 MG TAB PO SCH (21:58)
[2021-03-20] MEDS: Acetaminophen 325 MG TAB PO PRN (03:56)
[2021-03-20] MEDS: HumaLOG 300 UNITS/3 ML VIAL SC PRN (04:15)
[2021-03-20] MEDS: Levothyroxine Sodium 100 MCG TAB PO SCH (05:28)
[2021-03-20 07:00] LABS: #Basophils 0.1 thou/uL (0.0-0.2); #Eosinphils 0.3 thou/uL (0.0-0.7); #Neutrophils 3.9 thou/uL (1.40-6.50); %Basophils 0.9 % (0.0-1.0); %Eosinophils 3.3 % (0.0-10.0); %Lymphocytes 35.9 % (21.0-51.0); %Monocytes 12.4 % (0.0-10.0); %Neutrophils 47.5 % (42.0-75.0); Hemoglobin 13.6 g/dL (12.0-16.0); Mean Corpuscular HGB CONC 33.9 g/dL (32.0-36.0); Mean Corpuscular Hemoglobin 28.5 pg (27.0-31.0); Mean Corpuscular Volume 83.9 fL (78.0-98.0); Platelet Count 294 thou/uL (130-400); RBC Distribution Width 14.6 % (11.5-14.5); Red Blood Cell (RBC) Count 4.77 mill/uL (4.20-5.40); White Blood Cell (WBC) Count 8.2 thou/uL (4.8-10.8)
[2021-03-20 07:20] LABS: Anion Gap 8 mmol/L (10-20); BUN (Urea Nitrogen) 21 mg/dL (9.8-20.1); Calc. Creatinine Clearance 160 mL/min (70-130); Carbon Dioxide 27 mmol/L (23-31); Chloride 103 mmol/L (98-107); Glucose 115 mg/dL (80-115); Potassium 4.1 mmol/L (3.5-5.1); Sodium 134 mmol/L (136-145)
[2021-03-20] MEDS: Senokot S 8.6-50 MG TAB PO SCH ×2 (09:30→22:29)
[2021-03-20] MEDS: Oxybutynin 5 MG TAB PO SCH ×2 (09:30→22:30)
[2021-03-20] MEDS: Saccharomyces boulardii 250 MG CAP PO SCH (09:30)
[2021-03-20] MEDS: Gabapentin 400 MG CAP PO SCH (09:30)
[2021-03-20] MEDS: Nystatin 500,000 UNITS/5 ML UDCUP SSW SCH ×4 (09:30→22:30)
[2021-03-20] MEDS: Losartan 25 MG TAB PO SCH (09:30)
[2021-03-20] MEDS: Cyclobenzaprine 10 MG TAB PO SCH ×3 (09:30→22:30)
[2021-03-20] MEDS: Enoxaparin Sodium 40 MG/0.4 ML SYRINGE SC SCH (09:31)
[2021-03-20] MEDS: Amlodipine 10 MG TAB PO SCH (09:31)
[2021-03-20] MEDS: Acetaminophen/Codeine 30-300mg Tablet PO PRN (10:13)
[2021-03-20] MEDS: OCTAGAM 10% 30 GM in Admixture Fee 1 EACH IVPB SCH (15:48)
[2021-03-20] MEDS: Polyethylene Glycol 3350 17 GM Packet PO SCH (17:22)
[2021-03-20] MEDS: Atorvastatin Calcium 20 MG TAB PO SCH (22:30)
[2021-03-20] MEDS: Melatonin 3 MG TAB PO SCH (22:30)
[2021-03-21] MEDS: Levothyroxine Sodium 100 MCG TAB PO SCH (04:32)
[2021-03-21] MEDS: Acetaminophen/Codeine 30-300mg Tablet PO PRN ×2 (06:42→12:39)
[2021-03-21] MEDS: Gabapentin 400 MG CAP PO SCH (08:53)
[2021-03-21] MEDS: Oxybutynin 5 MG TAB PO SCH ×2 (08:53→20:52)
[2021-03-21] MEDS: Nystatin 500,000 UNITS/5 ML UDCUP SSW SCH ×4 (08:53→20:55)
[2021-03-21] MEDS: Losartan 25 MG TAB PO SCH (08:53)
[2021-03-21] MEDS: Saccharomyces boulardii 250 MG CAP PO SCH (08:53)
[2021-03-21] MEDS: Cyclobenzaprine 10 MG TAB PO SCH ×3 (08:54→20:53)
[2021-03-21] MEDS: Senokot S 8.6-50 MG TAB PO SCH ×2 (08:54→20:52)
[2021-03-21] MEDS: Amlodipine 10 MG TAB PO SCH (08:54)
[2021-03-21] MEDS: Enoxaparin Sodium 40 MG/0.4 ML SYRINGE SC SCH (08:57)
[2021-03-21 14:40] LABS: CSF IgG Index 0.8 (0.0-0.7); CSF IgG Synthesis Rate 27.1 mg/day (-9.9 TO +3.3); IgG/Alb CSF 0.24 (0.00-0.25)
[2021-03-21] MEDS: Polyethylene Glycol 3350 17 GM Packet PO SCH (17:49)
[2021-03-21] MEDS: Atorvastatin Calcium 20 MG TAB PO SCH (20:52)
[2021-03-21] MEDS: Acetaminophen 325 MG TAB PO PRN (20:53)
[2021-03-21] MEDS: Melatonin 3 MG TAB PO SCH (20:53)
[2021-03-21] MEDS: Doxycycline 100 MG CAP PO SCH (20:55)
[2021-03-22] MEDS: Acetaminophen/Codeine 30-300mg Tablet PO PRN ×2 (03:56→09:15)
[2021-03-22] MEDS: Levothyroxine Sodium 100 MCG TAB PO SCH (05:31)
[2021-03-22] MEDS: Cyclobenzaprine 10 MG TAB PO SCH ×3 (07:48→20:59)
[2021-03-22] MEDS: Gabapentin 400 MG CAP PO SCH (07:48)
[2021-03-22] MEDS: Saccharomyces boulardii 250 MG CAP PO SCH (07:48)
[2021-03-22] MEDS: Oxybutynin 5 MG TAB PO SCH ×2 (07:48→20:59)
[2021-03-22] MEDS: Senokot S 8.6-50 MG TAB PO SCH ×2 (07:49→20:59)
[2021-03-22] MEDS: Amlodipine 10 MG TAB PO SCH (07:49)
[2021-03-22] MEDS: Losartan 25 MG TAB PO SCH (07:49)
[2021-03-22] MEDS: Enoxaparin Sodium 40 MG/0.4 ML SYRINGE SC SCH (07:50)
[2021-03-22] MEDS: Doxycycline 100 MG CAP PO SCH ×2 (07:53→20:59)
[2021-03-22] MEDS: Nystatin 500,000 UNITS/5 ML UDCUP SSW SCH ×4 (07:53→20:59)
[2021-03-22] MEDS ORDERED: GoLYTELY 4,000 ml Bottle PO SCH (15:00)
[2021-03-22] MEDS ORDERED: Magnesium Citrate 300 ML BOT PO SCH (15:00)
[2021-03-22] MEDS ORDERED: OCTAGAM 10% (10 GM/100 ML VIAL) IVPB SCH (15:03)
[2021-03-22] MEDS: OCTAGAM 10% 30 GM in Admixture Fee 1 EACH IVPB SCH (16:20)
[2021-03-22] MEDS: Polyethylene Glycol 3350 17 GM Packet PO SCH (17:17)
[2021-03-22] MEDS: Atorvastatin Calcium 20 MG TAB PO SCH (20:59)
[2021-03-22] MEDS: Melatonin 3 MG TAB PO SCH (21:00)
[2021-03-23] MEDS: Acetaminophen/Codeine 30-300mg Tablet PO PRN ×2 (04:28→11:45)
[2021-03-23] MEDS: Levothyroxine Sodium 100 MCG TAB PO SCH (05:08)
[2021-03-23] MEDS: Dicyclomine 10 MG CAP PO SCH ×2 (06:38→08:27)
[2021-03-23] MEDS: Gabapentin 400 MG CAP PO SCH (08:25)
[2021-03-23] MEDS: Doxycycline 100 MG CAP PO SCH ×2 (08:25→20:12)
[2021-03-23] MEDS: Enoxaparin Sodium 40 MG/0.4 ML SYRINGE SC SCH (08:25)
[2021-03-23] MEDS: Nystatin 500,000 UNITS/5 ML UDCUP SSW SCH ×4 (08:25→20:12)
[2021-03-23] MEDS: Cyclobenzaprine 10 MG TAB PO SCH ×3 (08:26→20:09)
[2021-03-23] MEDS: Losartan 25 MG TAB PO SCH (08:26)
[2021-03-23] MEDS: Senokot S 8.6-50 MG TAB PO SCH ×2 (08:27→20:10)
[2021-03-23] MEDS: Oxybutynin 5 MG TAB PO SCH ×2 (08:27→20:10)
[2021-03-23] MEDS: Amlodipine 10 MG TAB PO SCH (08:28)
[2021-03-23] MEDS: Saccharomyces boulardii 250 MG CAP PO SCH (08:28)
[2021-03-23] MEDS ORDERED: Fleet Enema 133 ML BOT PR SCH (11:15)
[2021-03-23] MEDS: OCTAGAM 10% 30 GM in Admixture Fee 1 EACH IVPB SCH (15:48)
[2021-03-23] MEDS: Polyethylene Glycol 3350 17 GM Packet PO SCH (17:41)
[2021-03-23] MEDS: Melatonin 3 MG TAB PO SCH (20:10)
[2021-03-23] MEDS: Atorvastatin Calcium 20 MG TAB PO SCH (20:10)
[2021-03-23] MEDS: HumaLOG 300 UNITS/3 ML VIAL SC PRN (20:12)
[2021-03-24] MEDS: Levothyroxine Sodium 100 MCG TAB PO SCH (05:14)
[2021-03-24] MEDS: Acetaminophen/Codeine 30-300mg Tablet PO PRN ×2 (05:16→11:19)
[2021-03-24 07:18] LABS: #Basophils 0.1 thou/uL (0.0-0.2); #Eosinphils 0.1 thou/uL (0.0-0.7); #Lymphocytes 2.2 thou/uL (1.20-3.40); #Monocytes 0.9 thou/uL (0.11-0.59); #Neutrophils 3.5 thou/uL (1.40-6.50); %Eosinophils 2.2 % (0.0-10.0); %Lymphocytes 32.5 % (21.0-51.0); %Monocytes 12.6 % (0.0-10.0); %Neutrophils 51.8 % (42.0-75.0); Hemoglobin 13.9 g/dL (12.0-16.0); Mean Corpuscular HGB CONC 32.9 g/dL (32.0-36.0); Mean Corpuscular Hemoglobin 27.8 pg (27.0-31.0); Mean Corpuscular Volume 84.5 fL (78.0-98.0); Mean Platelet Volume 7.4 fL (7.4-10.4); Platelet Count 315 thou/uL (130-400); RBC Distribution Width 14.5 % (11.5-14.5); Red Blood Cell (RBC) Count 4.98 mill/uL (4.20-5.40); White Blood Cell (WBC) Count 6.7 thou/uL (4.8-10.8)
[2021-03-24 07:23] VITALS: TEMP 97.5
[2021-03-24 07:38] LABS: Anion Gap 11 mmol/L (10-20); BUN (Urea Nitrogen) 19 mg/dL (9.8-20.1); Calc. Creatinine Clearance 149 mL/min (70-130); Carbon Dioxide 25 mmol/L (23-31); Chloride 99 mmol/L (98-107); Glucose 145 mg/dL (80-115); Potassium 4.2 mmol/L (3.5-5.1); Sodium 131 mmol/L (136-145)
[2021-03-24 09:02] LABS: ALT (SGPT) 25 U/L (8-55); AST (SGOT) 18 U/L (5-34); Albumin 2.9 g/dL (3.4-4.8); Alkaline Phosphatase 114 U/L (40-110); Anion Gap 12 mmol/L (10-20); BUN (Urea Nitrogen) 18 mg/dL (9.8-20.1); Bilirubin, Total 0.5 mg/dL (0.2-1.2); Calc. Creatinine Clearance 149 mL/min (70-130); Calcium 9.1 mg/dL (7.8-10.44); Carbon Dioxide 23 mmol/L (23-31); Chloride 100 mmol/L (98-107); Globulin 5.9 g/dL (2.4-3.5); Glucose 149 mg/dL (80-115); Magnesium 1.7 mg/dL (1.6-2.6); Phosphorus 3.4 mg/dL (2.3-4.7); Potassium 4.3 mmol/L (3.5-5.1); Protein, Total 8.8 g/dL (5.8-8.1); Sodium 131 mmol/L (136-145)
[2021-03-24] MEDS: Losartan 25 MG TAB PO SCH (09:02)
[2021-03-24] MEDS: Oxybutynin 5 MG TAB PO SCH (09:02)
[2021-03-24] MEDS: Nystatin 500,000 UNITS/5 ML UDCUP SSW SCH ×3 (09:02→16:07)
[2021-03-24] MEDS: Senokot S 8.6-50 MG TAB PO SCH (09:02)
[2021-03-24] MEDS: Enoxaparin Sodium 40 MG/0.4 ML SYRINGE SC SCH (09:02)
[2021-03-24] MEDS: Saccharomyces boulardii 250 MG CAP PO SCH (09:02)
[2021-03-24] MEDS: Amlodipine 10 MG TAB PO SCH (09:02)
[2021-03-24] MEDS: Gabapentin 400 MG CAP PO SCH (09:02)
[2021-03-24] MEDS: Cyclobenzaprine 10 MG TAB PO SCH ×2 (09:02→14:30)
[2021-03-24] MEDS ORDERED: Magnesium 2 GM/50 ML 2 GM in Premix Bag 1 BAG IVPB SCH (10:00)
[2021-03-24] MEDS ORDERED: Magnesium Oxide 400 MG TAB PO SCH (10:45)
[2021-03-24 16:10] VITALS: BP 122/77
[2021-03-24] MEDS: Polyethylene Glycol 3350 17 GM Packet PO SCH (17:44)
== END 2021-03-24 17:57 | disposition swing bed (61) | DRG 94 ==
LOC: T4-A 17:09 → 2SW 03-09 02:49 → T4-A 03-14 20:45
PROVIDERS: ADMIT Internal Medicine; ATTEND Internal Medicine
PROC: 3E0G76Z Introduction of Nutritional Substance into Upper GI, Via Natural or Artificial Opening (ICD-10-PCS; 2021-03-14)
PROC: 0T9B70Z Drainage of Bladder with Drainage Device, Via Natural or Artificial Opening (ICD-10-PCS; 2021-03-15)
PROC: 009U3ZX Drainage of Spinal Canal, Percutaneous Approach, Diagnostic (ICD-10-PCS; principal; 2021-03-18)
PROC: B01B1ZZ Fluoroscopy of Spinal Cord using Low Osmolar Contrast (ICD-10-PCS; 2021-03-18)
DX: G61.0 Guillain-Barre syndrome (principal); J18.9 Pneumonia, unspecified organism; E44.0 Moderate protein-calorie malnutrition; N13.30 Unspecified hydronephrosis; E22.2 Syndrome of inappropriate secretion of antidiuretic hormone; Q60.0 Renal agenesis, unilateral; U09.9 Post COVID-19 condition, unspecified; E78.5 Hyperlipidemia, unspecified; E78.00 Pure hypercholesterolemia, unspecified; I10 Essential (primary) hypertension; E03.9 Hypothyroidism, unspecified; E11.9 Type 2 diabetes mellitus without complications; R33.9 Retention of urine, unspecified; E86.0 Dehydration; E87.6 Hypokalemia; G47.30 Sleep apnea, unspecified; I07.1 Rheumatic tricuspid insufficiency; Z68.36 Body mass index [BMI] 36.0-36.9, adult; Z88.1 Allergy status to other antibiotic agents; Z79.899 Other long term (current) drug therapy; Z79.890 Hormone replacement therapy; Z79.84 Long term (current) use of oral hypoglycemic drugs; Z90.49 Acquired absence of other specified parts of digestive tract; Z90.710 Acquired absence of both cervix and uterus; Z87.891 Personal history of nicotine dependence; R53.81 Other malaise; N32.81 Overactive bladder
CPT/HCPCS: 36415; 36416; 62270; 70551; 71045; 71275; 72146; 72148; 74018; 74177; 80048; 80053; 80061; 80076; 81001; 82040; 82042; 82306; 82607; 82784; 82945; 83605; 83735; 83880; 83916; 84100; 84157; 84443; 84484; 85025; 85379; 85610; 85730; 86140; 87040; 89051; 93005; 93010; 93306; 95712; 95819; 95957; 96374; 96375; J0360; J0456; J1100; J1568; J1650; J1815; J1885; J2185; J2270; J2405; J3475; J3480; J3490; J7050; Q9967

== ENCOUNTER 2021-10-14 13:04 | Emergency (ER) | payer MEDICARE, OTHER ==
[2021-10-14] MEDS ORDERED: Ketorolac Tromethamine 30 MG/ML VIAL ONE (16:14)
[2021-10-14] MEDS ORDERED: Gabapentin 300 MG CAP PO SCH (16:30)
== END 2021-10-14 17:00 | disposition home or self-care (01) ==
LOC: ERS 13:04
DX: E11.42 Type 2 diabetes mellitus with diabetic polyneuropathy (principal); E78.00 Pure hypercholesterolemia, unspecified; E78.5 Hyperlipidemia, unspecified; I10 Essential (primary) hypertension; Z87.891 Personal history of nicotine dependence; Z79.84 Long term (current) use of oral hypoglycemic drugs; Z79.890 Hormone replacement therapy; Z79.899 Other long term (current) drug therapy
CPT/HCPCS: 96372; J1885

== ENCOUNTER 2021-10-27 16:06 | Inpatient (IN) | payer MEDICARE, MEDICAID ==
[2021-10-27] MEDS ORDERED: Ondansetron PF 4 MG/2 ML Vial IVP PRN (20:58)
[2021-10-27] MEDS ORDERED: HumaLOG 300 UNITS/3 ML VIAL SC PRN (21:03)
[2021-10-27] MEDS ORDERED: Dextrose 50% Abboject 50 ML SYRINGE SLOW IVP PRN (21:03)
[2021-10-27] MEDS ORDERED: Dextrose 5% in Water 1,000 ML IV PRN (21:03)
[2021-10-27] MEDS ORDERED: Ketorolac Tromethamine 30 MG/ML VIAL IVP SCH (21:15)
[2021-10-27 22:32] VITALS: BMI 32.8
[2021-10-27] MEDS ORDERED: Albuterol Sulfate 2.5 mg/3 ml Neb NEB PRN (23:04)
[2021-10-27] MEDS ORDERED: Polyethylene Glycol 3350 17 GM Packet PO PRN (23:04)
[2021-10-27] MEDS: traMADol HCl 50 MG TAB PO PRN (23:12)
[2021-10-28 00:56] LABS: SARS-CoV-2 PCR by NAA Not Detected (NotDetected)
[2021-10-28] MEDS ORDERED: HYDROcodone/Acetaminophen 5/325 mg Tablet PO SCH (03:30)
[2021-10-28] MEDS: Acetaminophen 325 MG TAB PO PRN ×2 (05:26→21:17)
[2021-10-28] MEDS: Levothyroxine Sodium 100 MCG TAB PO SCH (05:27)
[2021-10-28 06:13] LABS: #Basophils 0.1 thou/uL (0.0-0.2); #Eosinphils 0.5 thou/uL (0.0-0.7); #Lymphocytes 5.1 thou/uL (1.20-3.40); #Neutrophils 4.5 thou/uL (1.40-6.50); %Basophils 0.5 % (0.0-1.0); %Eosinophils 4.7 % (0.0-10.0); %Lymphocytes 45.4 % (21.0-51.0); %Monocytes 9.4 % (0.0-10.0); %Neutrophils 39.9 % (42.0-75.0); Hemoglobin 13.4 g/dL (12.0-16.0); Mean Corpuscular HGB CONC 33.5 g/dL (32.0-36.0); Mean Corpuscular Hemoglobin 29.3 pg (27.0-31.0); Mean Corpuscular Volume 87.5 fL (78.0-98.0); Mean Platelet Volume 6.7 fL (7.4-10.4); Platelet Count 389 thou/uL (130-400); RBC Distribution Width 12.3 % (11.5-14.5); Red Blood Cell (RBC) Count 4.56 mill/uL (4.20-5.40); White Blood Cell (WBC) Count 11.2 thou/uL (4.8-10.8)
[2021-10-28 06:38] LABS: Anion Gap 15 mmol/L (10-20); BUN (Urea Nitrogen) 25 mg/dL (9.8-20.1); Calc. Creatinine Clearance 85 mL/min (70-130); Calcium 9.2 mg/dL (7.8-10.44); Carbon Dioxide 28 mmol/L (23-31); Chloride 98 mmol/L (98-107); Glucose 111 mg/dL (80-115); Potassium 3.3 mmol/L (3.5-5.1); Sodium 138 mmol/L (136-145)
[2021-10-28 11:03] LABS: Ref Lab Test Ordered IGG QUANT CSF; Reference Lab Name LABCORP
[2021-10-28 11:08] LABS: CSF, Glucose 71 mg/dl (40-70); CSF, Protein 54 mg/dL (15-40)
[2021-10-28 11:12] LABS: CSF Source CSF; Clarity Clear (Clear); Tube # 4
[2021-10-28 11:14] LABS: CSF RBC Count - Manual 4 /cu.mm (None Seen); CSF WBC/NonHematics Count-Man 29 /cu.mm (0-5)
[2021-10-28 11:55] LABS: Cell Count Non Hematic 12 %; Lymphocytes 88 %
[2021-10-28] MEDS: Gabapentin 400 MG CAP PO SCH ×3 (15:23→21:12)
[2021-10-28] MEDS: Oxybutynin 5 MG TAB PO SCH ×2 (15:27→21:11)
[2021-10-28] MEDS: traMADol HCl 50 MG TAB PO PRN (17:03)
[2021-10-28] MEDS: HumaLOG 300 UNITS/3 ML VIAL SC PRN (17:13)
[2021-10-28 18:54] LABS: HIV (1/2) Antibody/Antigen Non-Reactive (NonReactive); HIV 1/2 INDEX 0.18 S/CO (<1.00)
[2021-10-28] MEDS: Chlorthalidone 25 MG TAB PO SCH (21:11)
[2021-10-28] MEDS: Atorvastatin Calcium 20 MG TAB PO SCH (21:11)
[2021-10-29] MEDS: traMADol HCl 50 MG TAB PO PRN ×2 (05:22→22:40)
[2021-10-29] MEDS: Levothyroxine Sodium 100 MCG TAB PO SCH (05:22)
[2021-10-29 05:31] LABS: #Basophils 0.1 thou/uL (0.0-0.2); #Eosinphils 0.5 thou/uL (0.0-0.7); #Lymphocytes 4.1 thou/uL (1.20-3.40); #Monocytes 0.8 thou/uL (0.11-0.59); #Neutrophils 4.1 thou/uL (1.40-6.50); %Basophils 0.8 % (0.0-1.0); %Lymphocytes 42.9 % (21.0-51.0); %Monocytes 8.4 % (0.0-10.0); %Neutrophils 42.9 % (42.0-75.0); Hemoglobin 13.4 g/dL (12.0-16.0); Mean Corpuscular HGB CONC 32.3 g/dL (32.0-36.0); Mean Corpuscular Hemoglobin 28.3 pg (27.0-31.0); Mean Corpuscular Volume 87.6 fL (78.0-98.0); Platelet Count 401 thou/uL (130-400); RBC Distribution Width 12.5 % (11.5-14.5); Red Blood Cell (RBC) Count 4.73 mill/uL (4.20-5.40); White Blood Cell (WBC) Count 9.6 thou/uL (4.8-10.8)
[2021-10-29 05:53] LABS: Anion Gap 13 mmol/L (10-20); BUN (Urea Nitrogen) 21 mg/dL (9.8-20.1); Calc. Creatinine Clearance 93 mL/min (70-130); Calcium 9.4 mg/dL (7.8-10.44); Carbon Dioxide 30 mmol/L (23-31); Chloride 98 mmol/L (98-107); Glucose 143 mg/dL (80-115); Potassium 3.1 mmol/L (3.5-5.1); Sodium 138 mmol/L (136-145)
[2021-10-29] MEDS: Gabapentin 400 MG CAP PO SCH ×3 (08:11→22:03)
[2021-10-29] MEDS: Oxybutynin 5 MG TAB PO SCH ×2 (08:12→22:04)
[2021-10-29 10:55] LABS: Syphilis Antibody Nonreactive (Nonreactive); Syphilis Antibody Index 0.07 S/CO (<1.00 Non-Reactive)
[2021-10-29] MEDS: Acetaminophen 325 MG TAB PO PRN (11:12)
[2021-10-29] MEDS: HumaLOG 300 UNITS/3 ML VIAL SC PRN (11:13)
[2021-10-29] MEDS: Potassium Chloride 20 MEQ TAB PO SCH ×2 (11:46→15:33)
[2021-10-29] MEDS ORDERED: OCTAGAM 10% (10 GM/100 ML VIAL) IVPB SCH (13:30)
[2021-10-29] MEDS ORDERED: ADMIXTURE FEE IVPB SCH ×2 (15:00)
[2021-10-29] MEDS ORDERED: IMMUNE GLOBULIN IVPB SCH ×2 (15:00)
[2021-10-29] MEDS: Chlorthalidone 25 MG TAB PO SCH (22:03)
[2021-10-29] MEDS: Atorvastatin Calcium 20 MG TAB PO SCH (22:04)
[2021-10-30] MEDS: Acetaminophen 325 MG TAB PO PRN ×2 (01:49→05:56)
[2021-10-30 04:57] LABS: #Eosinphils 0.2 thou/uL (0.0-0.7); #Lymphocytes 1.8 thou/uL (1.20-3.40); #Monocytes 0.4 thou/uL (0.11-0.59); #Neutrophils 8.7 thou/uL (1.40-6.50); %Basophils 0.3 % (0.0-1.0); %Eosinophils 1.7 % (0.0-10.0); %Lymphocytes 15.9 % (21.0-51.0); %Monocytes 3.3 % (0.0-10.0); %Neutrophils 78.7 % (42.0-75.0); Hemoglobin 13.1 g/dL (12.0-16.0); Mean Corpuscular HGB CONC 33.3 g/dL (32.0-36.0); Mean Corpuscular Hemoglobin 29.2 pg (27.0-31.0); Mean Corpuscular Volume 87.7 fL (78.0-98.0); Mean Platelet Volume 6.7 fL (7.4-10.4); Platelet Count 352 thou/uL (130-400); RBC Distribution Width 12.5 % (11.5-14.5); Red Blood Cell (RBC) Count 4.47 mill/uL (4.20-5.40)
[2021-10-30 05:23] LABS: Anion Gap 10 mmol/L (10-20); BUN (Urea Nitrogen) 20 mg/dL (9.8-20.1); Calc. Creatinine Clearance 94 mL/min (70-130); Calcium 9.2 mg/dL (7.8-10.44); Carbon Dioxide 27 mmol/L (23-31); Chloride 101 mmol/L (98-107); Glucose 140 mg/dL (80-115); Potassium 3.4 mmol/L (3.5-5.1); Sodium 135 mmol/L (136-145)
[2021-10-30] MEDS: Levothyroxine Sodium 100 MCG TAB PO SCH (05:57)
[2021-10-30] MEDS ORDERED: Potassium Chloride 20 MEQ TAB PO SCH (07:45)
[2021-10-30] MEDS: Gabapentin 400 MG CAP PO SCH ×2 (08:46→16:20)
[2021-10-30] MEDS: Oxybutynin 5 MG TAB PO SCH (08:47)
[2021-10-30] MEDS ORDERED: Pregabalin 25 MG CAP PO SCH ×2 (09:45→21:00)
[2021-10-30] MEDS: HumaLOG 300 UNITS/3 ML VIAL SC PRN (11:10)
[2021-10-30 15:31] VITALS: BP 114/60; TEMP 97.1
== END 2021-10-30 16:45 | disposition home or self-care (01) | DRG 552 ==
LOC: INTOOBSV 17:43 → NEURO 17:43 → OBSVTOIN 10-29 15:05
PROVIDERS: ADMIT Internal Medicine; ATTEND Internal Medicine
PROC: 009U3ZX Drainage of Spinal Canal, Percutaneous Approach, Diagnostic (ICD-10-PCS; principal; 2021-10-29)
PROC: B01BZZZ Fluoroscopy of Spinal Cord (ICD-10-PCS; 2021-10-29)
DX: M51.16 Intervertebral disc disorders with radiculopathy, lumbar region (principal); G61.0 Guillain-Barre syndrome; E87.1 Hypo-osmolality and hyponatremia; I10 Essential (primary) hypertension; Z20.822 Contact with and (suspected) exposure to COVID-19; E78.5 Hyperlipidemia, unspecified; E03.9 Hypothyroidism, unspecified; U09.9 Post COVID-19 condition, unspecified; E78.2 Mixed hyperlipidemia; E66.9 Obesity, unspecified; G47.33 Obstructive sleep apnea (adult) (pediatric); E11.9 Type 2 diabetes mellitus without complications; Z88.1 Allergy status to other antibiotic agents; Z79.890 Hormone replacement therapy; Z79.899 Other long term (current) drug therapy; Z90.49 Acquired absence of other specified parts of digestive tract; Z90.710 Acquired absence of both cervix and uterus; Z68.32 Body mass index [BMI] 32.0-32.9, adult
CPT/HCPCS: 36415; 36416; 62270; 72158; 80048; 82945; 84157; 85025; 85060; 86780; 86788; 86789; 87389; 87529; 89051; 96374; G0378; J1568; J1815; J1885; U0003; U0005

== ENCOUNTER 2023-04-20 16:59 | Inpatient (IN) | payer MEDICARE, MEDICAID ==
[2023-04-20] MEDS ORDERED: Acetaminophen 325 MG TAB PO PRN (21:50)
[2023-04-20] MEDS ORDERED: HYDROcodone/Acetaminophen 5/325 mg Tablet PO PRN (21:50)
[2023-04-20] MEDS: Lactated Ringer's 1,000 ML IV SCH (21:57)
[2023-04-20] MEDS ORDERED: metroNIDAZOLE 500 MG in Premix 1 BAG IVPB SCH (22:00)
[2023-04-20] MEDS ORDERED: HumaLOG 300 UNITS/3 ML VIAL SC PRN (22:22)
[2023-04-20] MEDS ORDERED: Dextrose 50% Abboject 50 ML SYRINGE SLOW IVP PRN (22:22)
[2023-04-20] MEDS ORDERED: Glucagon 1 MG/ML KIT IM PRN (22:22)
[2023-04-20] MEDS ORDERED: Dextrose 5% in Water 1,000 ML IV PRN (22:22)
[2023-04-20] MEDS ORDERED: Ipratropium/Albuterol 3 ML NEB NEB PRN (22:25)
[2023-04-20 22:29] LABS: #Eosinphils 0.4 thou/uL (0.0-0.7); #Monocytes 1.1 thou/uL (0.11-0.59); #Neutrophils 11.8 thou/uL (1.40-6.50); %Basophils 0.2 % (0.0-1.0); %Eosinophils 2.7 % (0.0-10.0); %Lymphocytes 7.9 % (21.0-51.0); %Monocytes 7.5 % (0.0-10.0); %Neutrophils 80.8 % (42.0-75.0); Hematocrit 35.9 % (36.0-47.0); Hemoglobin 11.8 g/dL (12.0-16.0); Mean Corpuscular HGB CONC 32.9 g/dL (32.0-36.0); Mean Corpuscular Hemoglobin 26.2 pg (27.0-31.0); Mean Corpuscular Volume 79.8 fl (78.0-98.0); Mean Platelet Volume 9.6 fL (7.4-10.4); Platelet Count 336 10x3/uL (130-400); RBC Distribution Width 14.6 % (11.5-14.5); White Blood Cell (WBC) Count 14.6 10x3/uL (4.8-10.8)
[2023-04-20] MEDS ORDERED: Piperacillin/Tazobactam 3.375 GM in Sodium Chloride 0.9% 100 ML IVPB SCH (22:30)
[2023-04-20 22:33] LABS: Actual Bicarbonate (HCO3v) 25.7 mEq/L (22-28); Base Excess 2.1 mEq/L (-2.0 to +3.0); Calcium, Ionized (venous) 1.05 mmol/L (1.16-1.32); Chloride (VBG) 98 mmol/L (98-106); Hematocrit-VBG 38 % (36.0-47.0); Hemoglobin (Hb) 12.9 g/dL (11.7-16.1); Potassium (VBG) 3.11 mmol/L (3.70-5.30); Sodium 132 mmol/L (133-146); pH (venous) 7.461 (7.32-7.43)
[2023-04-20 22:55] LABS: ALT (SGPT) 11 U/L (8-55); AST (SGOT) 11 U/L (5-34); Albumin 3.4 g/dL (3.4-4.8); Alkaline Phosphatase 94 U/L (40-110); Anion Gap 15 mmol/L (10-20); BUN (Urea Nitrogen) 16 mg/dL (9.8-20.1); Bilirubin, Total 0.6 mg/dL (0.2-1.2); Calc. Creatinine Clearance 104 mL/min (70-130); Calcium 8.3 mg/dL (7.8-10.44); Carbon Dioxide 24 mmol/L (23-31); Chloride 99 mmol/L (98-107); Estimated GFR 74; Globulin 2.2 g/dL (2.4-3.5); Glucose 136 mg/dL (80-115); Potassium 3.4 mmol/L (3.5-5.1); Protein, Total 5.6 g/dL (5.8-8.1); Sodium 135 mmol/L (136-145)
[2023-04-20] MEDS ORDERED: Vancomycin (BATCH) 1.25 GM in Premix 1 BAG IVPB SCH (23:00)
[2023-04-20] MEDS ORDERED: Potassium Chloride 20 MEQ TAB PO SCH (23:00)
[2023-04-20] MEDS ORDERED: Sodium Chloride 0.9% 500 ML IV SCH (23:15)
[2023-04-20] MEDS ORDERED: Aztreonam 2 GM in Sodium Chloride 0.9% 100 ML IVPB SCH (23:59)
[2023-04-20] MEDS ORDERED: LevoFLOXacin 750 mg/D5W 750 MG in Premix 1 BAG IVPB SCH (23:59)
[2023-04-21] MEDS ORDERED: Sodium Chloride 0.9% 1,000 ML IV SCH (01:15)
[2023-04-21] MEDS ORDERED: Piperacillin/Tazobactam 3.375 GM in Sodium Chloride 0.9% 100 ML IVPB SCH ×3 (01:15→06:00)
[2023-04-21] MEDS: Ondansetron PF 4 MG/2 ML Vial IVP PRN ×3 (02:00→23:02)
[2023-04-21] MEDS ORDERED: Hydrocortisone Sod Succ/PF 100 mg/2 ml Vial IVP SCH (02:00)
[2023-04-21] MEDS ORDERED: NOREPINEPHRINE 8 MG/250 ML-D5W 250 ML IVPB SCH (02:00)
[2023-04-21 02:09] LABS: Actual Bicarbonate (HCO3a) 26.5 mEq/L (22-28); CO2 Tension 40.8 mmHg (35.0-45.0); Calcium, Ionized (arterial) 1.09 mmol/L (1.12-1.30); Carboxyhemoglobin (COHb) 0.7 gm% (0.0-3.0); Hematocrit-ABG 40 % (36.0-47.0); Hemoglobin (Hb) 13.6 g/dL (12.0-16.0); O2 Tension (PaO2), arterial 62.7 mmHg (> 80.0); Potassium - ABG Lab 3.67 mmol/L (3.70-5.30)
[2023-04-21 02:11] LABS: Puncture Site LRA
[2023-04-21] MEDS ORDERED: Acetaminophen 650 MG Suppository PR PRN (02:15)
[2023-04-21 02:20] LABS: #Eosinphils 0.6 thou/uL (0.0-0.7); #Monocytes 1.1 thou/uL (0.11-0.59); #Neutrophils 13.1 thou/uL (1.40-6.50); %Basophils 0.2 % (0.0-1.0); %Eosinophils 3.4 % (0.0-10.0); %Monocytes 6.5 % (0.0-10.0); %Neutrophils 80.3 % (42.0-75.0); Hematocrit 38.4 % (36.0-47.0); Hemoglobin 12.3 g/dL (12.0-16.0); Mean Corpuscular Hemoglobin 26.2 pg (27.0-31.0); Mean Corpuscular Volume 81.9 fl (78.0-98.0); Mean Platelet Volume 9.3 fL (7.4-10.4); Platelet Count 362 10x3/uL (130-400); RBC Distribution Width 14.8 % (11.5-14.5); Red Blood Cell (RBC) Count 4.69 mill/uL (4.20-5.40); White Blood Cell (WBC) Count 16.3 10x3/uL (4.8-10.8)
[2023-04-21] MEDS ORDERED: Ipratropium/Albuterol 3 ML NEB NEB SCH (02:30)
[2023-04-21 02:37] LABS: Lactic Acid 2.6 mmol/L (0.5-2.2)
[2023-04-21 02:53] LABS: ALT (SGPT) 17 U/L (8-55); AST (SGOT) 15 U/L (5-34); Albumin 3.5 g/dL (3.4-4.8); Alkaline Phosphatase 94 U/L (40-110); Anion Gap 18 mmol/L (10-20); BUN (Urea Nitrogen) 16 mg/dL (9.8-20.1); Bilirubin, Total 0.5 mg/dL (0.2-1.2); Calc. Creatinine Clearance 96 mL/min (70-130); Calcium 8.2 mg/dL (7.8-10.44); Carbon Dioxide 20 mmol/L (23-31); Chloride 100 mmol/L (98-107); Estimated GFR 67; Globulin 2.8 g/dL (2.4-3.5); Glucose 178 mg/dL (80-115); Potassium 3.6 mmol/L (3.5-5.1); Protein, Total 6.3 g/dL (5.8-8.1); Sodium 134 mmol/L (136-145)
[2023-04-21 02:55] LABS: Troponin I 0.224 ng/mL (< 0.028)
[2023-04-21] MEDS ORDERED: Electrolyte Replacement Protocol 1 EACH FS SCH (03:07)
[2023-04-21] MEDS: Lactated Ringer's 1,000 ML IV SCH ×3 (05:48→22:10)
[2023-04-21] MEDS: HumaLOG 300 UNITS/3 ML VIAL SC PRN (06:17)
[2023-04-21 06:25] LABS: Magnesium 1.6 mg/dL (1.6-2.6)
[2023-04-21] MEDS ORDERED: Magnesium 2 GM/50 ML(in water) 2 GM in Premix 1 BAG IVPB SCH (08:00)
[2023-04-21] MEDS: Pantoprazole 40 MG VIAL IVP SCH (08:17)
[2023-04-21 08:57] LABS: Lactic Acid 1.4 mmol/L (0.5-2.2)
[2023-04-21] MEDS ORDERED: Vancomycin 1.5 GM in Sodium Chloride 0.9% 250 ML 300 ML IVPB SCH (09:00)
[2023-04-21] MEDS ORDERED: cefTRIAXone\\ROCEPHIN 1 GM in Sodium Chloride 0.9% 100 ML IVPB SCH (12:00)
[2023-04-21 13:07] LABS: Troponin I 3.178 ng/mL (< 0.028)
[2023-04-21] MEDS ORDERED: Furosemide 20 MG/2 ML VIAL SLOW IVP SCH (15:15)
[2023-04-21] MEDS ORDERED: Vancomycin (BATCH) 1.5 GM in Premix 1 BAG IVPB SCH (17:00)
[2023-04-21 17:22] LABS: Troponin I 4.956 ng/mL (< 0.028)
[2023-04-21] MEDS ORDERED: Aspirin 325 MG TAB PO SCH (17:30)
[2023-04-21] MEDS ORDERED: Ketorolac Tromethamine 30 MG/ML VIAL IVP SCH (17:30)
[2023-04-21 18:59] LABS: INR-International Normal Ratio 1.4; Prothrombin Time 17.8 sec (12.0-14.7)
[2023-04-21] MEDS: Heparin 10,000 UNITS/ 10 ML VIAL SLOW IVP SCH (19:17)
[2023-04-21] MEDS: Heparin 25,000 units/D5W 500 ML IV SCH (19:18)
[2023-04-22] MEDS ORDERED: NOREPINEPHRINE 8 MG/250 ML-D5W 250 ML ONE (00:11)
[2023-04-22] MEDS ORDERED: NOREPINEPHRINE 8 MG/250 ML-D5W 250 ML IVPB SCH (00:15)
[2023-04-22] MEDS ORDERED: Mag-Al 1200 mg/1200 mg/30 ML UDCUP PO PRN (01:52)
[2023-04-22 01:55] LABS: #Eosinphils 0.8 thou/uL (0.0-0.7); #Monocytes 1.7 thou/uL (0.11-0.59); #Neutrophils 12.8 thou/uL (1.40-6.50); %Basophils 0.2 % (0.0-1.0); %Eosinophils 4.3 % (0.0-10.0); %Lymphocytes 17.6 % (21.0-51.0); %Monocytes 9.2 % (0.0-10.0); Hematocrit 38.6 % (36.0-47.0); Hemoglobin 12.5 g/dL (12.0-16.0); Mean Corpuscular HGB CONC 32.4 g/dL (32.0-36.0); Mean Corpuscular Hemoglobin 26.2 pg (27.0-31.0); Mean Corpuscular Volume 80.9 fl (78.0-98.0); Platelet Count 352 10x3/uL (130-400); RBC Distribution Width 15.2 % (11.5-14.5); Red Blood Cell (RBC) Count 4.77 mill/uL (4.20-5.40); White Blood Cell (WBC) Count 18.8 10x3/uL (4.8-10.8)
[2023-04-22 02:48] LABS: Anion Gap 18 mmol/L (10-20); BUN (Urea Nitrogen) 17 mg/dL (9.8-20.1); Calc. Creatinine Clearance 91 mL/min (70-130); Calcium 8.3 mg/dL (7.8-10.44); Carbon Dioxide 24 mmol/L (23-31); Chloride 95 mmol/L (98-107); Estimated GFR 63; Glucose 197 mg/dL (80-115); Potassium 3.5 mmol/L (3.5-5.1); Sodium 133 mmol/L (136-145)
[2023-04-22] MEDS ORDERED: Potassium Chloride 20 MEQ TAB PO SCH (03:45)
[2023-04-22] MEDS: Ondansetron PF 4 MG/2 ML Vial IVP PRN ×2 (04:32→11:52)
[2023-04-22] MEDS: Potassium Chloride 20 MEQ in Premix 1 BAG IVPB SCH ×4 (04:32→14:23)
[2023-04-22] MEDS: HumaLOG 300 UNITS/3 ML VIAL SC PRN (05:30)
[2023-04-22] MEDS: Lactated Ringer's 1,000 ML IV SCH (05:31)
[2023-04-22] MEDS ORDERED: Acetaminophen/Codeine 30-300mg Tablet PO PRN ×2 (09:35)
[2023-04-22] MEDS ORDERED: Sodium Chloride 0.9% 1,000 ML IV SCH (09:35)
[2023-04-22] MEDS ORDERED: Sodium Chloride 0.9% 200 ML IV PRN (09:35)
[2023-04-22] MEDS ORDERED: Nitroglycerin 0.4 MG TAB (25 Tab Bottle) SL PRN (09:35)
[2023-04-22] MEDS: Pantoprazole 40 MG VIAL IVP SCH (10:02)
[2023-04-22] MEDS: Metoclopramide 10 MG/10 ML UDCUP PO SCH ×3 (10:14→20:48)
[2023-04-22] MEDS ORDERED: Communication Order-Pharmacy FS ONE (10:42)
[2023-04-22] MEDS: Piperacillin/Tazobactam 3.375 GM in Sodium Chloride 0.9% 100 ML IVPB SCH ×2 (12:02→20:47)
[2023-04-22] MEDS: Heparin 25,000 units/D5W 500 ML IV SCH (12:02)
[2023-04-22 12:24] LABS: Potassium 3.1 mmol/L (3.5-5.1)
[2023-04-22] MEDS ORDERED: Iopamidol 370 76% 100 ML VIAL ONE (12:47)
[2023-04-22] MEDS: Heparin 10,000 UNITS/ 10 ML VIAL SLOW IVP SCH (14:18)
[2023-04-22] MEDS ORDERED: Furosemide 40 MG/4 ML VIAL SLOW IVP SCH (16:00)
[2023-04-22 18:33] LABS: Potassium 3.8 mmol/L (3.5-5.1)
[2023-04-22 19:09] LABS: PTT Greater than 250.0 sec (22.9-36.1)
[2023-04-23] MEDS: Metoclopramide 10 MG/10 ML UDCUP PO SCH (04:32)
[2023-04-23] MEDS: Piperacillin/Tazobactam 3.375 GM in Sodium Chloride 0.9% 100 ML IVPB SCH ×3 (04:32→22:03)
[2023-04-23 04:42] LABS: #Eosinphils 0.4 thou/uL (0.0-0.7); #Neutrophils 5.3 thou/uL (1.40-6.50); %Basophils 0.4 % (0.0-1.0); %Eosinophils 4.8 % (0.0-10.0); %Lymphocytes 25.8 % (21.0-51.0); %Neutrophils 57.5 % (42.0-75.0); Hematocrit 34.1 % (36.0-47.0); Hemoglobin 11.1 g/dL (12.0-16.0); Mean Corpuscular HGB CONC 32.6 g/dL (32.0-36.0); Mean Corpuscular Hemoglobin 25.9 pg (27.0-31.0); Mean Corpuscular Volume 79.5 fl (78.0-98.0); Mean Platelet Volume 9.9 fL (7.4-10.4); Platelet Count 292 10x3/uL (130-400); Red Blood Cell (RBC) Count 4.29 mill/uL (4.20-5.40); White Blood Cell (WBC) Count 9.3 10x3/uL (4.8-10.8)
[2023-04-23 05:11] LABS: Anion Gap 13 mmol/L (10-20); BUN (Urea Nitrogen) 13 mg/dL (9.8-20.1); Calc. Creatinine Clearance 105 mL/min (70-130); Calcium 7.8 mg/dL (7.8-10.44); Carbon Dioxide 30 mmol/L (23-31); Chloride 95 mmol/L (98-107); Estimated GFR 73; Glucose 189 mg/dL (80-115); Potassium 2.9 mmol/L (3.5-5.1); Sodium 135 mmol/L (136-145)
[2023-04-23] MEDS: HumaLOG 300 UNITS/3 ML VIAL SC PRN (06:43)
[2023-04-23] MEDS: Potassium Chloride 20 MEQ in Premix 1 BAG IVPB SCH ×2 (07:24→09:09)
[2023-04-23] MEDS ORDERED: PHENYLEPHRINE-NS 100 MCG/ML 10 ML SYRINGE ONE (08:16)
[2023-04-23] MEDS ORDERED: Albumin 5% 500 ML ONE (08:16)
[2023-04-23] MEDS ORDERED: Dexmedetomidine 200 MCG/2 ML VIAL ONE (08:23)
[2023-04-23] MEDS ORDERED: Fentanyl 250 MCG/5 ML VIAL ONE (08:24)
[2023-04-23] MEDS ORDERED: Midazolam HCl 2 mg/2 ml Vial ONE (08:24)
[2023-04-23] MEDS ORDERED: Heparin 10,000 UNITS/1 ML VIAL 30,000 UNITS in Sodium Chloride 0.9% 1,000 ML FS SCH (09:00)
[2023-04-23] MEDS ORDERED: Potassium Chloride 20 MEQ in Premix 1 BAG IVPB SCH ×2 (09:15→11:00)
[2023-04-23] MEDS ORDERED: Potassium Chloride 20 MEQ TAB PO SCH (09:15)
[2023-04-23] MEDS ORDERED: cefTRIAXone\\ROCEPHIN 1 GM in Sodium Chloride 0.9% 100 ML IVPB SCH ×2 (09:30→09:45)
[2023-04-23 09:40] LABS: Magnesium 1.8 mg/dL (1.6-2.6); Phosphorus 2.4 mg/dL (2.3-4.7)
[2023-04-23] MEDS ORDERED: Aminocaproic Acid 5 GM/20 ML VIAL ONE (09:50)
[2023-04-23] MEDS ORDERED: Calcium Chloride 1 GM/10 ML Abboject SYRINGE ONE (09:50)
[2023-04-23] MEDS ORDERED: Papaverine 60 MG/2 ML VIAL ONE (09:50)
[2023-04-23] MEDS ORDERED: Vecuronium 10 MG VIAL ONE (09:50)
[2023-04-23] MEDS ORDERED: Magnesium 5 GM/10 ML VIAL ONE (09:50)
[2023-04-23] MEDS ORDERED: Vancomycin 1 GM VIAL ONE (09:50)
[2023-04-23] MEDS ORDERED: Lidocaine 2% PF 100 mg/5 ml Syringe ONE (09:50)
[2023-04-23] MEDS ORDERED: Mannitol 12.5 GM/50 ML ONE (09:50)
[2023-04-23] MEDS ORDERED: Heparin 30,000 units/30 ml VIAL ONE (09:50)
[2023-04-23] MEDS ORDERED: Heparin 5,000 UNITS/ML VIAL ONE (09:50)
[2023-04-23] MEDS ORDERED: Esmolol 100 MG/10 ML VIAL ONE (09:50)
[2023-04-23] MEDS ORDERED: Lidocaine 1% PF 5 ML VIAL ONE (09:50)
[2023-04-23] MEDS ORDERED: Protamine Sulfate 250 MG/25 ML VIAL ONE (09:50)
[2023-04-23] MEDS ORDERED: Thrombin 5000 UNITS/5 ML VIAL ONE (09:50)
[2023-04-23] MEDS ORDERED: Cardioplegic Soln 1,000 ML BAG ONE (09:50)
[2023-04-23] MEDS ORDERED: Norepinephrine 4 MG/4 ML VIAL ONE (09:50)
[2023-04-23] MEDS ORDERED: Potassium Chloride 60 MEQ/30 ML VIAL ONE (09:50)
[2023-04-23] MEDS ORDERED: Sodium Bicarb 50 MEQ/50 ML VIAL ONE (09:50)
[2023-04-23] MEDS ORDERED: Insulin Regular 300 UNITS/3 ML VIAL ONE (12:36)
[2023-04-23] MEDS ORDERED: Nitroglycerin 50 MG/250 ML BOT 250 ML IVPB PRN (13:15)
[2023-04-23] MEDS ORDERED: Ipratropium/Albuterol 3 ML NEB NEB PRN (13:15)
[2023-04-23] MEDS ORDERED: HYDROcodone/Acetaminophen 5/325 mg Tablet PO PRN (13:15)
[2023-04-23] MEDS ORDERED: Post-Op Insulin Drip Protocol IVPB ONE (13:15)
[2023-04-23] MEDS ORDERED: Bisacodyl 5 MG TAB PO PRN (13:15)
[2023-04-23] MEDS ORDERED: hydrALAZINE 20 MG/ML VIAL SLOW IVP PRN (13:15)
[2023-04-23] MEDS ORDERED: Guaifenesin DM 100-10/5 ML UDCUP PO PRN (13:15)
[2023-04-23] MEDS ORDERED: niCARdipine 25 MG in Sodium Chloride 0.9% 250 ML 250 ML IVPB PRN (13:15)
[2023-04-23] MEDS ORDERED: Morphine 2 MG/ML VIAL SLOW IVP PRN (13:15)
[2023-04-23] MEDS ORDERED: NOREPINEPHRINE 8 MG/250 ML-D5W 250 ML IVPB PRN (13:15)
[2023-04-23] MEDS ORDERED: DOPamine 400 MG/D5W 250 ML 250 ML IVPB PRN (13:15)
[2023-04-23] MEDS ORDERED: Mag-Al 1200 mg/1200 mg/30 ML UDCUP PO PRN (13:15)
[2023-04-23] MEDS ORDERED: Hetastarch 6% 500 ML 500 ML IVPB PRN (13:15)
[2023-04-23] MEDS ORDERED: Bisacodyl 10 MG SUPP PR PRN (13:15)
[2023-04-23] MEDS ORDERED: Ondansetron PF 4 MG/2 ML Vial IVP PRN (13:15)
[2023-04-23 13:24] LABS: Actual Bicarbonate (HCO3a) 24.1 mEq/L (22-28); Base Excess (BEa) -2.2 mEq/L (-2.0 to +3.0); CO2 Tension 47.5 mmHg (35.0-45.0); Calcium, Ionized (arterial) 1.11 mmol/L (1.12-1.30); Carboxyhemoglobin (COHb) 0.3 gm% (0.0-3.0); Hematocrit-ABG 34 % (36.0-47.0); Hemoglobin (Hb) 11.5 g/dL (12.0-16.0); O2 Tension (PaO2), arterial 69.6 mmHg (> 80.0); Potassium - ABG Lab 2.76 mmol/L (3.70-5.30); pH, Arterial 7.323 (7.35-7.45)
[2023-04-23 13:26] LABS: Puncture Site Arterial Line
[2023-04-23 13:31] LABS: Hematocrit 33.3 % (36.0-47.0); Hemoglobin 10.7 g/dL (12.0-16.0); Mean Corpuscular HGB CONC 32.1 g/dL (32.0-36.0); Mean Corpuscular Hemoglobin 26.5 pg (27.0-31.0); Mean Platelet Volume 9.8 fL (7.4-10.4); Platelet Count 284 10x3/uL (130-400); RBC Distribution Width 14.9 % (11.5-14.5); Red Blood Cell (RBC) Count 4.04 mill/uL (4.20-5.40)
[2023-04-23 13:33] LABS: Delete Auto Diff?? YES; Manual Diff?? YES; Mean Corpuscular Volume 82.4 fl (78.0-98.0); White Blood Cell (WBC) Count 26.2 10x3/uL (4.8-10.8)
[2023-04-23 13:41] LABS: INR-International Normal Ratio 1.4; Prothrombin Time 17.2 sec (12.0-14.7)
[2023-04-23 13:42] LABS: PTT 32.8 sec (22.9-36.1)
[2023-04-23] MEDS ORDERED: Glucagon 1 MG/ML KIT SC PRN (13:45)
[2023-04-23] MEDS ORDERED: Dextrose 5% in Water 1,000 ML IV PRN (13:45)
[2023-04-23] MEDS ORDERED: Dextrose 50% Abboject 50 ML SYRINGE SLOW IVP PRN (13:45)
[2023-04-23] MEDS ORDERED: HUMULIN R 100 UNITS in Sodium Chloride 0.9% 100 ML IVPB SCH (13:45)
[2023-04-23 13:56] LABS: Anion Gap 12 mmol/L (10-20); BUN (Urea Nitrogen) 11 mg/dL (9.8-20.1); Band 19 % (5-11); Calc. Creatinine Clearance 112 mL/min (70-130); Calcium 7.9 mg/dL (7.8-10.44); Carbon Dioxide 26 mmol/L (23-31); CellaVision Operator ID LAB.MJL; Chloride 102 mmol/L (98-107); Eosinophils 10 % (0-10); Estimated GFR 82; Glucose 128 mg/dL (80-115); Hypochromia SLIGHT = 6-15 cells HPF (0-5); Lymphocytes 3 % (21-51); Monocytes 3 % (0-10); Neutrophil 60 % (42-75); Platelet Adequacy Comment Platelets Normal; Polychromasia SLIGHT = 2-3 cells HPF (0-2); Potassium 2.7 mmol/L (3.5-5.1); Reactive Lymphocytes 5 % (0-10); Sodium 137 mmol/L (136-145); Total Cell Count 104
[2023-04-23] MEDS: Lactated Ringer's 1,000 ML IV SCH ×2 (14:23→23:34)
[2023-04-23 15:45] LABS: ALV-art Gradient 140.725 mmHg (0-20); Actual Bicarbonate (HCO3a) 25.3 mEq/L (22-28); Base Excess (BEa) 0.6 mEq/L (-2.0 to +3.0); CO2 Tension 40.7 mmHg (35.0-45.0); Calcium, Ionized (arterial) 1.08 mmol/L (1.12-1.30); Carboxyhemoglobin (COHb) 0.1 gm% (0.0-3.0); Hematocrit-ABG 31 % (36.0-47.0); Hemoglobin (Hb) 10.7 g/dL (12.0-16.0); O2 Tension (PaO2), arterial 93.6 mmHg (> 80.0); Potassium - ABG Lab 2.92 mmol/L (3.70-5.30); Puncture Site Arterial Line; pH, Arterial 7.411 (7.35-7.45)
[2023-04-23] MEDS: Potassium Chloride 20 MEQ/100 ML PREMIX BAG IVPB PRN ×2 (16:38→21:07)
[2023-04-23 19:26] LABS: Hematocrit 29.6 % (36.0-47.0); Hemoglobin 9.6 g/dL (12.0-16.0)
[2023-04-23] MEDS: Famotidine/PF 20 mg/2ml Vial SLOW IVP SCH (19:41)
[2023-04-23] MEDS: fentaNYL 50 mcg/mL 1 mL Vial SLOW IVP PRN ×2 (19:41→22:43)
[2023-04-23] MEDS: Atorvastatin Calcium 20 MG TAB PO SCH (19:42)
[2023-04-23] MEDS: Insulin Regular 300 UNITS/3 ML VIAL SC PRN (19:59)
[2023-04-23 20:28] LABS: Potassium 3.3 mmol/L (3.5-5.1)
[2023-04-23] MEDS: HYDROcodone/Acetaminophen 5/325 mg Tablet PO PRN (21:39)
[2023-04-24] MEDS: Insulin Regular 300 UNITS/3 ML VIAL SC PRN ×5 (00:14→16:45)
[2023-04-24] MEDS: fentaNYL 50 mcg/mL 1 mL Vial SLOW IVP PRN ×6 (00:46→22:54)
[2023-04-24] MEDS: HYDROcodone/Acetaminophen 5/325 mg Tablet PO PRN (02:59)
[2023-04-24 04:34] LABS: #Basophils 0.1 thou/uL (0.0-0.2); #Eosinphils 0.4 thou/uL (0.0-0.7); #Monocytes 1.4 thou/uL (0.11-0.59); #Neutrophils 7.6 thou/uL (1.40-6.50); %Basophils 0.4 % (0.0-1.0); %Eosinophils 3.4 % (0.0-10.0); %Lymphocytes 18.5 % (21.0-51.0); %Monocytes 12.1 % (0.0-10.0); %Neutrophils 64.9 % (42.0-75.0); Hematocrit 28.1 % (36.0-47.0); Hemoglobin 8.9 g/dL (12.0-16.0); Mean Corpuscular HGB CONC 31.7 g/dL (32.0-36.0); Mean Corpuscular Hemoglobin 25.9 pg (27.0-31.0); Mean Corpuscular Volume 81.7 fl (78.0-98.0); Mean Platelet Volume 9.7 fL (7.4-10.4); Platelet Count 293 10x3/uL (130-400); RBC Distribution Width 15.2 % (11.5-14.5); Red Blood Cell (RBC) Count 3.44 mill/uL (4.20-5.40); White Blood Cell (WBC) Count 11.7 10x3/uL (4.8-10.8)
[2023-04-24 04:58] LABS: Anion Gap 12 mmol/L (10-20); BUN (Urea Nitrogen) 11 mg/dL (9.8-20.1); Calc. Creatinine Clearance 112 mL/min (70-130); Calcium 7.9 mg/dL (7.8-10.44); Carbon Dioxide 25 mmol/L (23-31); Chloride 102 mmol/L (98-107); Estimated GFR 82; Glucose 145 mg/dL (80-115); Potassium 2.9 mmol/L (3.5-5.1); Sodium 136 mmol/L (136-145)
[2023-04-24] MEDS: Levothyroxine Sodium 100 MCG TAB PO SCH (06:08)
[2023-04-24] MEDS: Piperacillin/Tazobactam 3.375 GM in Sodium Chloride 0.9% 100 ML IVPB SCH ×3 (06:09→22:55)
[2023-04-24] MEDS: Potassium Chloride 20 MEQ/100 ML PREMIX BAG IVPB PRN (06:25)
[2023-04-24] MEDS: Polyethylene Glycol 3350 17 GM Packet PO SCH (08:30)
[2023-04-24] MEDS: Aspirin 325 MG TAB PO SCH (08:30)
[2023-04-24] MEDS: Famotidine/PF 20 mg/2ml Vial SLOW IVP SCH ×2 (08:30→20:26)
[2023-04-24] MEDS: Acetaminophen 325 MG TAB PO PRN (08:30)
[2023-04-24] MEDS: Empagliflozin 10 MG TAB PO SCH (09:00)
[2023-04-24] MEDS: Potassium Chloride 20 MEQ in Premix 1 BAG IVPB SCH ×2 (09:00→11:15)
[2023-04-24] MEDS ORDERED: cefTRIAXone\\ROCEPHIN 1 GM in Sodium Chloride 0.9% 100 ML IVPB SCH (09:00)
[2023-04-24] MEDS ORDERED: Potassium Chloride 20 MEQ TAB PO SCH (10:00)
[2023-04-24 10:38] LABS: Anion Gap 13 mmol/L (10-20); BUN (Urea Nitrogen) 10 mg/dL (9.8-20.1); Calc. Creatinine Clearance 116 mL/min (70-130); Calcium 7.7 mg/dL (7.8-10.44); Carbon Dioxide 25 mmol/L (23-31); Chloride 101 mmol/L (98-107); Estimated GFR 82; Glucose 191 mg/dL (80-115); Potassium 3.1 mmol/L (3.5-5.1); Sodium 136 mmol/L (136-145)
[2023-04-24 10:40] LABS: Magnesium 1.8 mg/dL (1.6-2.6)
[2023-04-24 10:43] LABS: Phosphorus 1.8 mg/dL (2.3-4.7)
[2023-04-24] MEDS: traMADol HCl 50 MG TAB PO PRN ×2 (11:00→17:00)
[2023-04-24 18:52] LABS: Chloride 101 mmol/L (98-107); Potassium 3.8 mmol/L (3.5-5.1); Sodium 134 mmol/L (136-145)
[2023-04-24 18:53] LABS: Calcium 8.4 mg/dL (7.8-10.44); Glucose 109 mg/dL (80-115)
[2023-04-24 18:55] LABS: Anion Gap 11 mmol/L (10-20); Carbon Dioxide 26 mmol/L (23-31)
[2023-04-24 18:57] LABS: BUN (Urea Nitrogen) 9 mg/dL (9.8-20.1); Calc. Creatinine Clearance 120 mL/min (70-130); Estimated GFR 86
[2023-04-24] MEDS: Atorvastatin Calcium 20 MG TAB PO SCH (20:27)
[2023-04-25] MEDS: traMADol HCl 50 MG TAB PO PRN (00:34)
[2023-04-25] MEDS: fentaNYL 50 mcg/mL 1 mL Vial SLOW IVP PRN ×3 (03:02→11:14)
[2023-04-25 04:51] LABS: #Basophils 0.1 thou/uL (0.0-0.2); #Eosinphils 0.1 thou/uL (0.0-0.7); #Monocytes 1.9 thou/uL (0.11-0.59); #Neutrophils 11.1 thou/uL (1.40-6.50); %Basophils 0.6 % (0.0-1.0); %Eosinophils 0.9 % (0.0-10.0); %Lymphocytes 15.9 % (21.0-51.0); %Monocytes 11.9 % (0.0-10.0); %Neutrophils 69.9 % (42.0-75.0); Hematocrit 28.3 % (36.0-47.0); Mean Corpuscular HGB CONC 31.8 g/dL (32.0-36.0); Mean Corpuscular Hemoglobin 26.1 pg (27.0-31.0); Mean Platelet Volume 10.1 fL (7.4-10.4); Platelet Count 296 10x3/uL (130-400); RBC Distribution Width 15.5 % (11.5-14.5); Red Blood Cell (RBC) Count 3.45 mill/uL (4.20-5.40); White Blood Cell (WBC) Count 15.9 10x3/uL (4.8-10.8)
[2023-04-25 05:19] LABS: Anion Gap 14 mmol/L (10-20); BUN (Urea Nitrogen) 9 mg/dL (9.8-20.1); Calc. Creatinine Clearance 129 mL/min (70-130); Calcium 8.4 mg/dL (7.8-10.44); Carbon Dioxide 23 mmol/L (23-31); Chloride 100 mmol/L (98-107); Estimated GFR 94; Glucose 93 mg/dL (80-115); Potassium 3.4 mmol/L (3.5-5.1); Sodium 134 mmol/L (136-145)
[2023-04-25] MEDS: Piperacillin/Tazobactam 3.375 GM in Sodium Chloride 0.9% 100 ML IVPB SCH ×3 (06:51→23:09)
[2023-04-25] MEDS: Levothyroxine Sodium 100 MCG TAB PO SCH (06:51)
[2023-04-25] MEDS: Aspirin 325 MG TAB PO SCH (11:00)
[2023-04-25] MEDS: Famotidine/PF 20 mg/2ml Vial SLOW IVP SCH (11:00)
[2023-04-25] MEDS: Furosemide 40 MG TAB PO SCH (11:01)
[2023-04-25] MEDS: Potassium Chloride 20 MEQ TAB PO SCH (11:01)
[2023-04-25] MEDS: Empagliflozin 10 MG TAB PO SCH (11:01)
[2023-04-25] MEDS: Carvedilol 3.125 MG TAB PO SCH ×2 (11:01→17:45)
[2023-04-25] MEDS: Polyethylene Glycol 3350 17 GM Packet PO SCH (11:01)
[2023-04-25] MEDS ORDERED: Artificial Tear Sol 15 ML BOT EA EYE PRN (11:16)
[2023-04-25] MEDS ORDERED: Nitroglycerin 0.4 MG TAB (25 Tab Bottle) SL PRN (11:16)
[2023-04-25] MEDS: Acetaminophen 325 MG TAB PO PRN (11:16)
[2023-04-25] MEDS ORDERED: Mineral Oil ENEMA PR PRN (11:16)
[2023-04-25] MEDS ORDERED: Insulin Regular 300 UNITS/3 ML VIAL SC PRN (11:45)
[2023-04-25] MEDS ORDERED: Dextrose 5% in Water 1,000 ML IV PRN (11:45)
[2023-04-25] MEDS ORDERED: Dextrose 50% Abboject 50 ML SYRINGE SLOW IVP PRN (11:45)
[2023-04-25] MEDS ORDERED: Glucagon 1 MG/ML KIT SC PRN (11:45)
[2023-04-25] MEDS: Famotidine 20 MG TAB PO SCH (23:07)
[2023-04-25] MEDS: Atorvastatin Calcium 20 MG TAB PO SCH (23:07)
[2023-04-26 03:58] LABS: #Basophils 0.1 thou/uL (0.0-0.2); #Eosinphils 0.6 thou/uL (0.0-0.7); #Monocytes 1.8 thou/uL (0.11-0.59); #Neutrophils 11.2 thou/uL (1.40-6.50); %Basophils 0.7 % (0.0-1.0); %Eosinophils 3.3 % (0.0-10.0); %Lymphocytes 17.9 % (21.0-51.0); %Monocytes 10.8 % (0.0-10.0); %Neutrophils 66.3 % (42.0-75.0); Hemoglobin 10.5 g/dL (12.0-16.0); Mean Corpuscular HGB CONC 32.8 g/dL (32.0-36.0); Mean Corpuscular Hemoglobin 26.2 pg (27.0-31.0); Mean Corpuscular Volume 79.8 fl (78.0-98.0); Mean Platelet Volume 9.4 fL (7.4-10.4); Platelet Count 374 10x3/uL (130-400); RBC Distribution Width 15.3 % (11.5-14.5); Red Blood Cell (RBC) Count 4.01 mill/uL (4.20-5.40); White Blood Cell (WBC) Count 16.8 10x3/uL (4.8-10.8)
[2023-04-26 04:30] LABS: Anion Gap 17 mmol/L (10-20); BUN (Urea Nitrogen) 13 mg/dL (9.8-20.1); Calc. Creatinine Clearance 113 mL/min (70-130); Calcium 8.5 mg/dL (7.8-10.44); Carbon Dioxide 23 mmol/L (23-31); Chloride 97 mmol/L (98-107); Estimated GFR 80; Glucose 107 mg/dL (80-115); Potassium 3.1 mmol/L (3.5-5.1); Sodium 134 mmol/L (136-145)
[2023-04-26] MEDS: Levothyroxine Sodium 100 MCG TAB PO SCH (07:27)
[2023-04-26] MEDS: Piperacillin/Tazobactam 3.375 GM in Sodium Chloride 0.9% 100 ML IVPB SCH ×3 (07:27→22:59)
[2023-04-26] MEDS: Aspirin 325 MG TAB PO SCH (08:01)
[2023-04-26] MEDS: Potassium Chloride 20 MEQ TAB PO SCH (08:01)
[2023-04-26] MEDS: Metolazone 2.5 MG TAB PO SCH (08:01)
[2023-04-26] MEDS: Carvedilol 3.125 MG TAB PO SCH ×2 (08:01→16:43)
[2023-04-26] MEDS: Furosemide 40 MG TAB PO SCH (08:01)
[2023-04-26] MEDS: Empagliflozin 10 MG TAB PO SCH (08:01)
[2023-04-26] MEDS: Polyethylene Glycol 3350 17 GM Packet PO SCH (08:01)
[2023-04-26] MEDS: Famotidine 20 MG TAB PO SCH ×2 (08:01→22:59)
[2023-04-26 08:25] VITALS: BMI 43.1
[2023-04-26] MEDS: traMADol HCl 50 MG TAB PO PRN (13:34)
[2023-04-26] MEDS: Atorvastatin Calcium 20 MG TAB PO SCH (22:59)
[2023-04-26] MEDS ORDERED: Electrolyte Replacement Protocol 1 EACH FS SCH (23:15)
[2023-04-26] MEDS ORDERED: Potassium Chloride 20 MEQ TAB PO SCH (23:15)
[2023-04-27 04:03] LABS: #Basophils 0.1 thou/uL (0.0-0.2); #Eosinphils 0.8 thou/uL (0.0-0.7); #Monocytes 1.3 thou/uL (0.11-0.59); %Basophils 0.8 % (0.0-1.0); %Eosinophils 5.5 % (0.0-10.0); %Lymphocytes 21.2 % (21.0-51.0); %Neutrophils 62.7 % (42.0-75.0); Hematocrit 29.4 % (36.0-47.0); Hemoglobin 9.5 g/dL (12.0-16.0); Mean Corpuscular HGB CONC 32.3 g/dL (32.0-36.0); Mean Corpuscular Hemoglobin 25.8 pg (27.0-31.0); Mean Corpuscular Volume 79.9 fl (78.0-98.0); Mean Platelet Volume 9.3 fL (7.4-10.4); Platelet Count 489 10x3/uL (130-400); RBC Distribution Width 15.2 % (11.5-14.5); Red Blood Cell (RBC) Count 3.68 mill/uL (4.20-5.40); White Blood Cell (WBC) Count 14.4 10x3/uL (4.8-10.8)
[2023-04-27 04:32] LABS: Anion Gap 17 mmol/L (10-20); BUN (Urea Nitrogen) 15 mg/dL (9.8-20.1); Calc. Creatinine Clearance 89 mL/min (70-130); Calcium 8.5 mg/dL (7.8-10.44); Carbon Dioxide 29 mmol/L (23-31); Chloride 94 mmol/L (98-107); Estimated GFR 62; Glucose 121 mg/dL (80-115); Potassium 2.7 mmol/L (3.5-5.1); Sodium 137 mmol/L (136-145)
[2023-04-27] MEDS: Levothyroxine Sodium 100 MCG TAB PO SCH (06:23)
[2023-04-27] MEDS: Piperacillin/Tazobactam 3.375 GM in Sodium Chloride 0.9% 100 ML IVPB SCH (06:23)
[2023-04-27 08:24] LABS: Magnesium 1.8 mg/dL (1.6-2.6); Phosphorus 2.3 mg/dL (2.3-4.7); Potassium 2.8 mmol/L (3.5-5.1)
[2023-04-27] MEDS ORDERED: Magnesium 2 GM/50 ML(in water) 2 GM in Premix 1 BAG IVPB SCH (09:15)
[2023-04-27] MEDS: Carvedilol 3.125 MG TAB PO SCH ×2 (09:26→17:31)
[2023-04-27] MEDS: Polyethylene Glycol 3350 17 GM Packet PO SCH (09:27)
[2023-04-27] MEDS: Aspirin 325 MG TAB PO SCH (09:27)
[2023-04-27] MEDS: Potassium Chloride 20 MEQ TAB PO SCH ×4 (09:27→17:30)
[2023-04-27] MEDS: Famotidine 20 MG TAB PO SCH ×2 (09:28→20:57)
[2023-04-27] MEDS: Furosemide 40 MG TAB PO SCH (09:28)
[2023-04-27] MEDS: Empagliflozin 10 MG TAB PO SCH (09:28)
[2023-04-27] MEDS: Metolazone 2.5 MG TAB PO SCH (09:38)
[2023-04-27 17:11] LABS: Potassium 3.5 mmol/L (3.5-5.1)
[2023-04-27] MEDS: Atorvastatin Calcium 20 MG TAB PO SCH (20:57)
[2023-04-27] MEDS: Amoxicillin/Potassium Clav 875 MG TAB PO SCH (20:57)
[2023-04-27] MEDS: traMADol HCl 50 MG TAB PO PRN (21:00)
[2023-04-28 07:17] LABS: Anion Gap 20 mmol/L (10-20); BUN (Urea Nitrogen) 17 mg/dL (9.8-20.1); Calc. Creatinine Clearance 103 mL/min (70-130); Calcium 9.2 mg/dL (7.8-10.44); Carbon Dioxide 28 mmol/L (23-31); Chloride 94 mmol/L (98-107); Estimated GFR 81; Glucose 123 mg/dL (80-115); Magnesium 1.8 mg/dL (1.6-2.6); Potassium 3.8 mmol/L (3.5-5.1); Sodium 138 mmol/L (136-145)
[2023-04-28] MEDS: Levothyroxine Sodium 100 MCG TAB PO SCH (07:17)
[2023-04-28] MEDS ORDERED: Potassium Chloride 20 MEQ TAB PO SCH (08:00)
[2023-04-28] MEDS: Metolazone 2.5 MG TAB PO SCH (08:35)
[2023-04-28] MEDS: Potassium Chloride 20 MEQ TAB PO SCH ×2 (08:35→16:35)
[2023-04-28] MEDS: Furosemide 40 MG TAB PO SCH (08:35)
[2023-04-28] MEDS: Empagliflozin 10 MG TAB PO SCH (08:35)
[2023-04-28] MEDS: Carvedilol 3.125 MG TAB PO SCH ×2 (08:35→16:35)
[2023-04-28] MEDS: Famotidine 20 MG TAB PO SCH ×2 (08:35→21:03)
[2023-04-28] MEDS: Amoxicillin/Potassium Clav 875 MG TAB PO SCH ×2 (08:35→21:03)
[2023-04-28] MEDS: Polyethylene Glycol 3350 17 GM Packet PO SCH (08:35)
[2023-04-28] MEDS: Aspirin 325 MG TAB PO SCH (08:35)
[2023-04-28] MEDS ORDERED: Magnesium 2 GM/50 ML(in water) 2 GM in Premix 1 BAG IVPB SCH (09:00)
[2023-04-28] MEDS: Atorvastatin Calcium 20 MG TAB PO SCH (21:03)
[2023-04-28] MEDS: traMADol HCl 50 MG TAB PO PRN (21:03)
[2023-04-29] MEDS: Levothyroxine Sodium 100 MCG TAB PO SCH (06:30)
[2023-04-29] MEDS: Carvedilol 3.125 MG TAB PO SCH (07:38)
[2023-04-29] MEDS: Famotidine 20 MG TAB PO SCH (07:38)
[2023-04-29] MEDS: Amoxicillin/Potassium Clav 875 MG TAB PO SCH (07:39)
[2023-04-29] MEDS: Empagliflozin 10 MG TAB PO SCH (07:39)
[2023-04-29] MEDS: Aspirin 325 MG TAB PO SCH (07:39)
[2023-04-29] MEDS: Polyethylene Glycol 3350 17 GM Packet PO SCH (07:39)
[2023-04-29 08:40] VITALS: TEMP 97.7
[2023-04-29 15:23] VITALS: BP 133/62
[2023-05-10 14:21] LABS: Analyzer IN Cardio OR; Base Excess (BEa) 5.2 mEq/L (-2.0 to +3.0); CO2 Tension 39.6 mmHg (35.0-45.0); Calcium, Ionized (arterial) 1.07 mmol/L (1.12-1.30); Carboxyhemoglobin (COHb) 0.6 gm% (0.0-3.0); Hematocrit-ABG 35 % (36.0-47.0); Hemoglobin (Hb) 11.8 g/dL (12.0-16.0); O2 Tension (PaO2), arterial 258.8 mmHg (> 80.0); Potassium - ABG Lab 3.24 mmol/L (3.70-5.30); pH, Arterial 7.483 (7.35-7.45)
[2023-05-10 14:21] LABS: Actual Bicarbonate (HCO3a) 29.9 mEq/L (22-28); Analyzer IN Cardio OR; Base Excess (BEa) 6.2 mEq/L (-2.0 to +3.0); CO2 Tension 39.8 mmHg (35.0-45.0); Calcium, Ionized (arterial) 1.03 mmol/L (1.12-1.30); Carboxyhemoglobin (COHb) 0.4 gm% (0.0-3.0); Hematocrit-ABG 34 % (36.0-47.0); Hemoglobin (Hb) 11.4 g/dL (12.0-16.0); O2 Tension (PaO2), arterial 156.2 mmHg (> 80.0); Potassium - ABG Lab 3.32 mmol/L (3.70-5.30); pH, Arterial 7.494 (7.35-7.45)
[2023-05-10 14:22] LABS: Actual Bicarbonate (HCO3a) 27.4 mEq/L (22-28); Analyzer IN Cardio OR; Base Excess (BEa) 2.9 mEq/L (-2.0 to +3.0); CO2 Tension 41.8 mmHg (35.0-45.0); Calcium, Ionized (arterial) 1.07 mmol/L (1.12-1.30); Carboxyhemoglobin (COHb) 0.6 gm% (0.0-3.0); Hematocrit-ABG 26 % (36.0-47.0); Hemoglobin (Hb) 8.7 g/dL (12.0-16.0); O2 Tension (PaO2), arterial 127.4 mmHg (> 80.0); Potassium - ABG Lab 3.19 mmol/L (3.70-5.30); pH, Arterial 7.434 (7.35-7.45)
[2023-05-10 14:22] LABS: Actual Bicarbonate (HCO3a) 27.9 mEq/L (22-28); Analyzer IN Cardio OR; Base Excess (BEa) 5.5 mEq/L (-2.0 to +3.0); CO2 Tension 31.9 mmHg (35.0-45.0); Calcium, Ionized (arterial) 0.91 mmol/L (1.12-1.30); Carboxyhemoglobin (COHb) 0.7 gm% (0.0-3.0); Hematocrit-ABG 25 % (36.0-47.0); Hemoglobin (Hb) 8.4 g/dL (12.0-16.0); O2 Tension (PaO2), arterial 313.9 mmHg (> 80.0)
[2023-05-10 14:22] LABS: Actual Bicarbonate (HCO3a) 26.5 mEq/L (22-28); Analyzer IN Cardio OR; Base Excess (BEa) 2.9 mEq/L (-2.0 to +3.0); CO2 Tension 36.2 mmHg (35.0-45.0); Calcium, Ionized (arterial) 0.98 mmol/L (1.12-1.30); Carboxyhemoglobin (COHb) 0.8 gm% (0.0-3.0); Hematocrit-ABG 23 % (36.0-47.0); Hemoglobin (Hb) 7.8 g/dL (12.0-16.0); O2 Tension (PaO2), arterial 378.3 mmHg (> 80.0); Potassium - ABG Lab 3.76 mmol/L (3.70-5.30); pH, Arterial 7.482 (7.35-7.45)
[2023-05-10 14:23] LABS: Puncture Site Arterial Line
[2023-05-10 14:23] LABS: Puncture Site Arterial Line
[2023-05-10 14:24] LABS: Puncture Site Arterial Line
[2023-05-10 14:24] LABS: Puncture Site Arterial Line
[2023-05-10 14:25] LABS: Puncture Site Arterial Line
== END 2023-04-29 15:32 | disposition swing bed (61) | DRG 853 ==
LOC: T4-A 20:33 → OBSVTOIN 21:50 → CCU 04-21 01:50 → IMCU/EMU 04-25 18:27
PROVIDERS: ADMIT Internal Medicine; ATTEND Hospitalist
PROC: 4A133R1 Monitoring of Arterial Saturation, Peripheral, Percutaneous Approach (ICD-10-PCS; 2023-04-20)
PROC: 3E03329 Introduction of Other Anti-infective into Peripheral Vein, Percutaneous Approach (ICD-10-PCS; 2023-04-20)
PROC: 4A00X4Z Measurement of Central Nervous Electrical Activity, External Approach (ICD-10-PCS; principal; 2023-04-21)
PROC: 3E033XZ Introduction of Vasopressor into Peripheral Vein, Percutaneous Approach (ICD-10-PCS; 2023-04-21)
PROC: 5A09357 Assistance with Respiratory Ventilation, Less than 24 Consecutive Hours, Continuous Positive Airway Pressure (ICD-10-PCS; 2023-04-21)
PROC: 4A023N7 Measurement of Cardiac Sampling and Pressure, Left Heart, Percutaneous Approach (ICD-10-PCS; 2023-04-22)
PROC: B2151ZZ Fluoroscopy of Left Heart using Low Osmolar Contrast (ICD-10-PCS; 2023-04-22)
PROC: B2111ZZ Fluoroscopy of Multiple Coronary Arteries using Low Osmolar Contrast (ICD-10-PCS; 2023-04-22)
PROC: 30233J1 Transfusion of Nonautologous Serum Albumin into Peripheral Vein, Percutaneous Approach (ICD-10-PCS; 2023-04-23)
PROC: 021009W Bypass Coronary Artery, One Artery from Aorta with Autologous Venous Tissue, Open Approach (ICD-10-PCS; 2023-04-23)
PROC: 02100Z9 Bypass Coronary Artery, One Artery from Left Internal Mammary, Open Approach (ICD-10-PCS; 2023-04-23)
PROC: 06BQ4ZZ Excision of Left Saphenous Vein, Percutaneous Endoscopic Approach (ICD-10-PCS; 2023-04-23)
PROC: 02L70CK Occlusion of Left Atrial Appendage with Extraluminal Device, Open Approach (ICD-10-PCS; 2023-04-23)
PROC: 5A1221Z Performance of Cardiac Output, Continuous (ICD-10-PCS; 2023-04-23)
PROC: 0W9B30Z Drainage of Left Pleural Cavity with Drainage Device, Percutaneous Approach (ICD-10-PCS; 2023-04-24)
PROC: 0W9930Z Drainage of Right Pleural Cavity with Drainage Device, Percutaneous Approach (ICD-10-PCS; 2023-04-24)
DX: A41.9 Sepsis, unspecified organism (principal); G93.41 Metabolic encephalopathy; J96.01 Acute respiratory failure with hypoxia; R65.21 Severe sepsis with septic shock; I21.A1 Myocardial infarction type 2; I50.21 Acute systolic (congestive) heart failure; E87.20 Acidosis, unspecified; J98.11 Atelectasis; N39.0 Urinary tract infection, site not specified; G61.0 Guillain-Barre syndrome; I42.9 Cardiomyopathy, unspecified; J81.1 Chronic pulmonary edema; Z68.41 Body mass index [BMI] 40.0-44.9, adult; I11.0 Hypertensive heart disease with heart failure; E11.9 Type 2 diabetes mellitus without complications; E78.5 Hyperlipidemia, unspecified; R53.1 Weakness; R77.8 Other specified abnormalities of plasma proteins; I95.9 Hypotension, unspecified; G47.33 Obstructive sleep apnea (adult) (pediatric); R26.81 Unsteadiness on feet; K21.9 Gastro-esophageal reflux disease without esophagitis; E78.2 Mixed hyperlipidemia; I25.10 Atherosclerotic heart disease of native coronary artery without angina pectoris; E66.9 Obesity, unspecified; Z90.49 Acquired absence of other specified parts of digestive tract; Z90.710 Acquired absence of both cervix and uterus; Z98.891 History of uterine scar from previous surgery; Z86.16 Personal history of COVID-19; Z98.890 Other specified postprocedural states; Z82.49 Family history of ischemic heart disease and other diseases of the circulatory system; Z87.891 Personal history of nicotine dependence; Z88.1 Allergy status to other antibiotic agents
CPT/HCPCS: 36415; 36416; 36600; 71045; 71250; 80048; 80053; 82533; 82805; 83605; 83735; 83880; 84100; 84145; 84484; 85025; 85347; 85610; 85730; 86140; 86850; 86900; 86901; 87086; 93005; 93010; 93306; 93458; 93798; 94002; 94640; 94660; 95711; 95819; A4311; C1751; C1769; C1894; C9113; J0696; J1265; J1644; J1650; J1815; J1885; J1940; J1956; J2001; J2150; J2250; J2272; J2405; J2440; J2543; J2720; J3010; J3370; J3475; J3480; J3490; J7030; J7050; J7120; J7620; P9045; Q9967; S0017; S0028